=== PATIENT | male | born 1945 | race Caucasian/White ===

== ENCOUNTER → 2020-01-27 12:52 | Outpatient (BNVA) | payer MEDICARE, MEDICAID, SELFPAY | PROVIDERS: Family Provider Family Medicine; PCP Family Medicine; Visit Provider Family Medicine | DX: E78.2 Mixed hyperlipidemia (principal); E11.9 Type 2 diabetes mellitus without complications; M1A.9XX0 Chronic gout, unspecified, without tophus (tophi); H66.91 Otitis media, unspecified, right ear; I10 Essential (primary) hypertension; M54.5 Low back pain; H66.001 Acute suppurative otitis media without spontaneous rupture of ear drum, right ear | CPT/HCPCS: 80053; 80061; 83036; 84550; 85025 ==

== ENCOUNTER → 2020-08-22 18:17 | Outpatient (BNVA) | payer MEDICARE, MEDICAID, SELFPAY | PROVIDERS: Family Provider Family Medicine; PCP Family Medicine; Visit Provider Family Medicine | DX: I10 Essential (primary) hypertension (principal); E78.5 Hyperlipidemia, unspecified; E11.9 Type 2 diabetes mellitus without complications | CPT/HCPCS: 80053; 80061; 83036; 85025 ==

== ENCOUNTER → 2020-12-15 09:16 | Outpatient (BNVA) | payer OTHER, MEDICAID, SELFPAY | PROVIDERS: Family Provider Family Medicine; PCP Family Medicine; Visit Provider Family Medicine | DX: E11.51 Type 2 diabetes mellitus with diabetic peripheral angiopathy without gangrene (principal); R60.0 Localized edema; F10.27 Alcohol dependence with alcohol-induced persisting dementia; E78.2 Mixed hyperlipidemia; I10 Essential (primary) hypertension | CPT/HCPCS: 80053; 80061; 83036; 84443; 85025 ==

== ENCOUNTER → 2021-04-27 15:46 | Outpatient (BNVA) | payer OTHER, MEDICAID, SELFPAY | PROVIDERS: Family Provider Family Medicine; PCP Family Medicine; Visit Provider Internal Medicine Cardiovascular Disease | DX: F10.27 Alcohol dependence with alcohol-induced persisting dementia (principal); R60.0 Localized edema; I73.9 Peripheral vascular disease, unspecified; R06.02 Shortness of breath; I50.33 Acute on chronic diastolic (congestive) heart failure; I10 Essential (primary) hypertension | CPT/HCPCS: 80048; 83880 ==

== ENCOUNTER 2021-06-22 10:16 | Outpatient (CLI) | payer MEDICARE, MEDICAID, SELFPAY ==
--- NOTE | 2021-06-22 10:15 | USR_ITS ---
PROCEDURE INFORMATION: Exam: US Duplex Lower Extremity Arteries Exam date and time: 06/22/2021 10:15 AM Age: 76 years old Clinical indication: Leg, lower; Bilateral; Patient HX: Pain in legs; Additional info: I73.9 - peripheral vascular disease, unspecified, aeap TECHNIQUE: Imaging protocol: Real-time ultrasound scan of the arteries of the bilateral lower extremities with 2-D falcon scale, color Doppler flow and spectral waveform analysis. Images documented and saved. COMPARISON: CT Chest/Abdomen/Pelvis w IV* 12/11/2018 9:06 PM FINDINGS: Right external iliac artery: Right external iliac artery is patent with monophasic waveforms but strong systolic upstroke. Right common femoral artery: No occlusion or significant stenosis. Monophasic waveform. Right superficial femoral artery: No occlusion or significant stenosis. Monophasic waveform. Right popliteal artery: No occlusion or significant stenosis. Monophasic waveform. Right calf/foot arteries: Ankle brachial index on the right is 0.6 which implies moderate vascular insufficiency. Posterior tibial artery and dorsalis pedis artery are patent with diminished flow and monophasic waveform Left external iliac artery: Proximal and mid left external iliac arteries are occluded. The distal left internal iliac artery reconstitutes via collaterals in has continuous phasic flow. Left common femoral artery: No occlusion or significant stenosis. Continuous monophasic waveform with slow systolic upstroke. Left superficial femoral artery: No occlusion or significant stenosis. Continuous monophasic waveform with slow systolic upstroke. Left popliteal artery: No occlusion or significant stenosis. Monophasic waveform with poor systolic upstroke. Left calf/foot arteries: Ankle brachial index on the left is 0.4 which implies severe vascular insufficiency. No flow seen in the distal left posterior tibial artery. The left dorsalis pedis artery is patent to supply the foot US/[place] [id number] IMPRESSION: Abnormal examination with moderate vascular insufficiency on the right and severe vascular insufficiency on the left with occlusions demonstrated in the left proximal and mid external iliac artery.
== END 2021-06-22 10:17 | disposition home or self-care (01) ==
PROVIDERS: PCP Family Medicine; Visit Provider Internal Medicine Cardiovascular Disease
DX: I73.9 Peripheral vascular disease, unspecified (principal)
CPT/HCPCS: 93925

== ENCOUNTER 2021-10-18 13:16 | Outpatient (CLI) | payer MEDICARE, MEDICAID, SELFPAY ==
--- NOTE | 2021-10-18 13:30 | US_ITS ---
WS: [id number] ULTRASOUND THYROID TECHNIQUE: Ultrasound of the thyroid. CLINICAL INFORMATION: E07.9 - Disorder of thyroid, unspecified COMPARISON: None. FINDINGS: Technically limited examination due to patient mobility. Thyroid: Right and left thyroid lobes are normal in size and echotexture. No thyroid nodules are pres ent. Right thyroid lobe: 3.4 cm x 1.6 cm x 2.2 cm Left thyroid lobe: 3.3 cm x 1.9 cm x 1.8 cm. Isthmus: 10.0 mm. Cervical lymphadenopathy: None. US/US thyroid [id number] IMPRESSION: Grossly normal thyroid ultrasound considering limitations.
== END 2021-10-18 13:17 | disposition home or self-care (01) ==
LOC: RAD 13:19
PROVIDERS: PCP Family Medicine; Visit Provider Thoracic Surgery (Cardiothoracic Vascular Surgery)
DX: E07.9 Disorder of thyroid, unspecified (principal)
CPT/HCPCS: 76536

== ENCOUNTER → 2022-01-09 11:45 | Outpatient (BNVA) | payer MEDICARE, MEDICAID, SELFPAY | PROVIDERS: PCP Family Medicine; Referring Provider Internal Medicine Cardiovascular Disease | DX: Z01.812 Encounter for preprocedural laboratory examination (principal); M79.606 Pain in leg, unspecified; I73.9 Peripheral vascular disease, unspecified | CPT/HCPCS: 86850; 86900 ==

== ENCOUNTER 2022-01-15 15:11 | Inpatient (IN) | payer MEDICARE, MEDICAID, SELFPAY ==
[2022-01-15] VITALS (44 sets, daily range): BP systolic 53–155; BP diastolic 31–113; PULSE 68–95; RESP 14–27; TEMP 36.6–36.8; O2SAT 85–100; BMI 26.5
--- NOTE | 2022-01-15 15:53 | W.ED.GENADLT ---
HPI - General Adult General: Chief complaint: General Medical Stated complaint: INCREASED WEAKNESS, WHEEZING, LEG PAIN Time Seen by Provider: 01/15/22 15:16 Source: patient Mode of arrival: EMS Limitations: altered mental status History of Present Illness: 76-year-old male presents from shelter via EMS. They reported he was weak poorly responsive and hypotensive at the shelter with elevated blood sugar.On arrival here he is alert but unable to give any significant history. He is not oriented to time place. He denies chest pain abdominal pain or difficulty breathing. Onset (ago): unknown Radiation: non-radiation Severity: mild Relieving factors: none Exacerbating factors: none Associated symptoms: Reports weakness; Deny cough, decreased appetite, fevers/chills, seizures or short of breath Treatments prior to arrival: none Review of Systems General: Reports: ROS unobtainable due to mental status PFS ED PFSH: Medical History ASHD (arteriosclerotic heart disease) ASVD (arteriosclerotic vascular disease) Carotid artery disease Chronic gout CKD (chronic kidney disease) Dementia Diabetes History of [place] (myocardial infarction) History of positive PPD Hyperlipidemia Hypertension Pre-procedure lab exam PVD (peripheral vascular disease) Spinal stenosis Vitamin D deficiency Surgical History H/O bilateral cataract extraction (Unknown) H/O cataract extraction History of hernia repair (~1995) Family History Other CAD (coronary artery disease) Cancer Unknown family medical history Social History Alcohol intake: never Marital status: / Physical Exam Const: GENERAL APPEARANCE: cooperative and comfortable ORIENTATION/CONSCIOUSNESS: Yes awake HENMT: COMMON NORMALS: normocephalic, atraumatic and hearing grossly normal bilaterally HEAD & SCALP: normocephalic and atraumatic Neck/C-Spine: COMMON NORMALS: no JVD Resp: COMMON NORMALS: normal respiratory effort, No retractions, No use of accessory muscles and clear to auscultation bilaterally AUSCULTATION: clear to auscultation bilaterally Cardio: COMMON NORMALS: no JVD, regular rate, regular rhythm and No murmurs present (Cardio) RATE: regular rate RHYTHM: regular rhythm GI: COMMON NORMALS: Soft to palpation and No hepatosplenomegaly present AUSCULTATION: Yes normoactive bowel sounds PALPATION: Yes Soft to palpation, No Tenderness to palpation present (GI), No Guarding due to palpation present (GI) and Yes No hepatosplenomegaly present : COMMON NORMALS: Yes no CVA tenderness BLADDER/KIDNEY EXAM: Yes no CVA tenderness Back/Pelvis: COMMON NORMALS: no CVA tenderness Extremity: COMMON NORMALS: normal to inspection, capillary refill normal, no clubbing, cyanosis or edema, no calf tenderness and no pedal edema Skin: COMMON NORMALS: no rashes or lesions noted GENERAL SKIN EXAM: no rashes or lesions noted Course Vital Signs: Vital signs: Vital Signs Temperature 97.7 F 01/18/22 08:00 Pulse Rate 89 01/18/22 08:35 Respiratory Rate 17 01/18/22 08:35 Blood Pressure 93/64 01/18/22 08:00 Pulse Oximetry 97 01/18/22 08:35 [facility] - General Adult Medical Decision Making Patient acute rhabdomyolysis with altered mental status hypotension. Suspect some of his hypotension is due to volume depletion as well as iatrogenic from medications. Will admit to ICU given his hypotension discussed with hospitalist orders written Medical Records I reviewed the patient's medical records. Lab Data I reviewed the patient's lab results. : 01/17/22 04:48 01/17/22 04:48 Radiology Impressions Chest X-Ray 01/15/22 15:54 IMPRESSION: 1. No acute findings. 2. Low lung volumes seen. Discharge Plan Discharge Patient Disposition: Admitted As Inpatient Admit Provider: Misty Whiteside Clinical Impression: Hypotension, Rhabdomyolysis, Volume depletion Condition: Stable Coding Level of Care Code ED Planning Official for Dena Snell
--- NOTE | 2022-01-15 15:54 | ECG_ITS ---
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 Measurements Intervals [place] Rate: 78 P: 247 CT: 290 QRS: -2 QRSD: 118 T: 65 QT: 395 QTc: 452 Interpretive Statements Atrial flutter/fibrillation with a heart rate of 70 bpm INCOMPLETE RIGHT BUNDLE BRANCH BLOCK [90+ ms QRS DURATION, TERMINAL R IN V1/V2, 40+ ms S IN I/aVL/V4/V5/V6] POSSIBLE LATERAL MYOCARDIAL INFARCTION , OF INDETERMINATE AGE [30 ms Q WAVE IN I/aVL/V5/V6] Compared to ECG 12/11/2018 18:11:08 Ectopic atrial rhythm now present Incomplete right bundle-branch block now present Myocardial infarct finding now present Sinus rhythm no longer present Left-axis deviation no longer present Right bundle-branch block no longer present Electronically Signed On 01-15-2022 17:09:04 EXPERIMENTAL FLIGHT TEST MECHANIC by Sathish Rod M.D. [id number]
--- NOTE | 2022-01-15 15:54 | XRR_ITS ---
PROCEDURE INFORMATION: Exam: XR Chest Exam date and time: 01/15/2022 3:54 PM Age: 76 years old Clinical indication: Cough and dyspnea; Additional info: Dyspnea/cough, AMS TECHNIQUE: Imaging protocol: XR of the chest. Views: 1 view. COMPARISON: CT Chest/Abdomen/Pelvis w IV* 12/11/2018 9:06 PM FINDINGS: Lungs: Low lung volumes. The lungs are otherwise clear No consolidation. Pleural spaces: Unremarkable. No pleural effusion. No pneumothorax. Heart/Mediastinum: Unremarkable. No cardiomegaly. Bones/joints: Unremarkable. XR/XR chest 1V portable [id number] IMPRESSION: 1. No acute findings. 2. Low lung volumes seen.
[2022-01-15 16:09] LABS: Basophils % 0.2 %; Hematocrit 41.1 % (42.0-52.0); Hemoglobin 13.6 g/dL (11.7-16.6); Lymphocytes # 0.9 10^3/uL (0.8-4.8); Lymphocytes % 4.5 %; Mean Corpuscular HGB Conc 33.1 g/dL (30.0-36.0); Mean Corpuscular Hemoglobin 32.6 pg (28.0-34.0); Mean Corpuscular Volume 98.6 fl (80-94); Monocytes # 1.9 10^3/uL (0.2-0.9); Monocytes % 9.5 %; Neutrophils # 17.28 10^3/uL (1.8-7.7); Neutrophils % 85.1 %; Nucleated Red Blood Cells % 0 %; Platelet Count 219 10^3/cmm (130-400); Red Blood Count 4.17 10^6/uL (4.1-5.3); Red Cell Distribution Width 13.8 % (12.1-15.1); White Blood Count 20.3 10^3/uL (4.0-10.0)
[2022-01-15 16:20] LABS: Alanine Aminotransferase 24 U/L (0-41); Alkaline Phosphatase 98 IU/L (40-130); Aspartate Amino Transferase 68 U/L (0-40); Blood Urea Nitrogen 58 mg/dL (8-23); Calcium 10.2 mg/dL (8.5-10.5); Carbon Dioxide 22 mmol/L (22-29); Chloride 94 mmol/L (98-107); Globulin 3.6 g/dL (1.3-4.6); Glucose 309 mg/dL (65-115); Osmolality Calculated 296 mOsm/kg (285-295); Sodium 129 mmol/L (136-145); Total Bilirubin 0.5 mg/dL (0.15-1.2); Total Protein 7.6 g/dL (6.6-8.7)
--- NOTE | 2022-01-15 16:23 | PC.PHAR ---
pt is from [facility] [phone]-rudy med tech from [facility] states the pt had his am meds
[2022-01-15 16:35] LABS: Creatine Phosphokinase 5072 U/L (39-308)
--- NOTE | 2022-01-15 18:26 | P.HP_ITS ---
Providers/Chief Complaint Primary Care Provider: Gabriel Avery MD Chief Complaint: INCREASED WEAKNESS, WHEEZING, LEG PAIN History of Present Illness Richard Bose is a 76 year old male presented from [facility] for generalized weakness and confusion. In the ER he was diagnosed with hypotension related to polypharmacy. At the time of evaluation patient was able to tell me that he is in his home, however he notes that he was born in 1971, he was able to make eye contact and conversation without any shortness of breath. He does look fluid overloaded, some skin mottling noted on knees. Patient was given 2 L of LR in the ER for his hypertension. At the time my evaluation his map was 65mmhg I requested admission to ICU. Patient is awake and alert able to converse 8, no active chest pain or shortness of breath. He is endorsing dysuria, I will request Lopez catheter for collection of urine and adequate urin e output measurement. halfway records reviewed, he is DNR/DNI. Review of Systems Const: Reports: body aches Eyes: Denies: change in vision ENMT: Denies: throat pain Card: Denies: chest pain Resp: Reports: dyspnea GI: Denies: abdominal pain : Reports: dysuria and urinary frequency Musc: Reports: extremity swelling Skin/Breast: Denies: rash Neuro: Denies: headache(s) Psych: Denies: anxiety Endo: Denies: polyuria Bebeto/Lymph: Denies: easy bruising All/Imm: Denies: urticaria Medications/Allergies Home Medications Medication Instructions Recorded Confirmed Last Taken Type acetaminophen 325 mg capsule 650 mg PO Q6H PRN cap 11/25/19 01/15/22 Unknown Hi story allopurinol 300 mg tablet 300 mg PO DAILY@07 tab 11/25/19 01/15/22 01/15/22 History cilostazol 100 mg tablet 100 mg PO BID@,11/25/19 01/15/22 01/15/22 History liraglutide 0.6 mg/0.1 mL (18 mg/3 1.8 mg SUBCUT DAILY@07 11/25/19 01/15/22 01/15/22 History mL) subcutaneous pen injector (Victoza 3-Zain) lisinopril 10 mg tablet 10 mg PO DAILY@07 tab 11/25/19 01/15/22 01/15/22 History nitroglycerin 0.4 mg sublingual 0.4 mg SUBLINGUAL Q5M PRN 11/25/19 01/15/22 Unknown History tablet (Nitrostat) pen needle, diabetic 31 gauge x #100 each 12/15/20 01/15/22 Unknown Rx 04/02 (Easy Comfort Pen [place]) memantine 10 mg tablet (Namenda) 10 mg PO BID@07,19 tab 04/27/21 01/15/22 Unknown History rivaroxaban 15 mg tablet (Xarelto) 15 mg PO DAILY@08/31/21 01/15/22 01/14/22 History albuterol sulfate 2.5 mg INHALATION Q8H PRN 01/15/22 01/15/22 Unknown History bisacodyl 10 mg rectal suppository 10 mg [place] DAILY PRN 01/15/22 01/15/22 Unknown History dapagliflozin 10 mg tablet 10 mg PO DAILY@01/15/22 01/15/22 01/15/22 History (Farxiga) folic acid 400 mcg tablet 400 mcg PO DAILY@01/15/22 01/15/22 01/15/22 History furosemide 40 mg tablet (Lasix) 40 mg PO BID 01/15/22 01/15/22 01/15/22 History insulin glargine 100 unit/mL 30 unit SUBCUT BEDTIME@01/15/22 01/15/22 01/14/22 History subcutaneous solution isosorbide mononitrate 30 mg 30 mg PO DAILY@01/15/22 01/15/22 01/15/22 History tablet,extended release 24 hr loperamide 2 mg tablet See Rx Instructions .ROUTE .COMPLEX 01/15/22 01/15/22 Unknown History loperamide 2 mg tablet See Rx Instructions .ROUTE .COMPLEX 01/15/22 01/15/22 Unknown History lorazepam 0.5 mg tablet 0.5 mg PO BID PRN 01/15/22 01/15/22 01/12/22 History magnesium hydroxide 400 mg/5 mL 5 ml PO DAILY PRN 01/15/22 01/15/22 Unknown History oral suspension (Milk of Magnesia) metoprolol succinate 25 mg 25 mg PO DAILY@01/15/22 01/15/22 01/15/22 History tablet,extended release 24 hr potassium chloride 10 mEq 10 meq PO BID@,01/15/22 01/15/22 01/15/22 History capsule,extended release risperidone 0.5 mg tablet 0.5 mg PO BID@01/15/22 01/15/22 01/15/22 History (Risperdal) rosuvastatin 20 mg tablet 20 mg PO BEDTIME@01/15/22 01/15/22 01/14/22 History spironolactone 25 mg tablet 25 mg PO DAILY@01/15/22 01/15/22 01/15/22 History Allergies Allergy/AdvReac Type Severity Reaction Status Date / Time Penicillins Allergy Unknown Verified 01/15/22 16:03 metformin AdvReac Unknown Verified 01/15/22 16:03 PFSH Acute PFSH: Medical History (Updated 01/15/22 @ 19:27 by Misty Whiteside MD) ASHD (arteriosclerotic heart disease) ASVD (arteriosclerotic vascular disease) Carotid artery disease Chronic gout CKD (chronic kidney disease) Dementia Diabetes History of [place] (myocardial infarction) History of positive PPD Hyperlipidemia Hypertension Pre-procedure lab exam PVD (peripheral vascular disease) Spinal stenosis Vitamin D deficiency Surgical History (Updated 01/15/22 @ 19:27 by Misty Whiteside MD) H/O bilateral cataract extraction (Unknown) H/O cataract extraction History of hernia repair (~1995) Family History Other CAD (coronary artery disease) Cancer Unknown family medical history Social History Alcohol intake: never Marital status: / Vitals/I&O/Wt Last Vital Signs Temp 97.9 F 01/15/22 15:13 Pulse 76 01/15/22 15:13 Resp 19 H 01/15/22 15:13 BP 85/43 01/15/22 15:13 Pulse Ox 95 01/15/22 15:13 Weight last 48 hrs Weight 83.915 kg Physical Exam Narrative: Patient was in semifowler position Saturating well on room air Patient does look fluid overloaded with bilateral lower extremity 3+ pitting edema, normal genital exam Edema up to his thighs I did not appreciate JVD Satting well on room air He does have cardiac wheezing Distended abdomen Nontender EOMI, PERRLA Able to follow commands Oriented to himself Data : 01/15/22 Unknown 01/15/22 Unknown A&P Assessment and plan (1) Carotid artery disease: Status: Acute Qualifiers: Carotid artery disease type: unspecified Laterality: unspecified laterality Qualified Code(s): I77.9 - Disorder of arteries and arterioles, unspecified (2) Leg pain: Status: Acute Qualifiers: Laterality: left Qualified Code(s): M79.605 - Pain in left leg (3) SOB (shortness of breath): Status: Acute (4) Edema: Status: Acute Qualifiers: Edema type: localized Qualified Code(s): R60.0 - Localized edema (5) Dementia associated with alcoholism with behavioral disturbance: Status: Acute (6) Chronic gout: Status: Acute (7) PVD (peripheral vascular disease): Status: Acute (8) Diabetes: Status: Acute Qualifiers: Diabetes mellitus type: type 2 Diabetes mellitus terminal worker insulin use: without terminal worker use Diabetes mellitus complication status: without complication Qualified Code(s): E11.9 - Type 2 diabetes mellitus without complications (9) Hypertension: Status: Acute Qualifiers: Hypertension type: essential hypertension Qualified Code(s): I10 - Essential (primary) hypertension (10) Hyperlipidemia: Status: Acute Qualifiers: Hyperlipidemia type: mixed hyperlipidemia Qualified Code(s): E78.2 - Mixed hyperlipidemia (11) Cardiogenic shock: Status: Acute Plan Hypotension related to polypharmacy Patient is also on multiple antihypertensive regimen Clinically looks fluid overloaded Cardiac wheezing positive I am not able to give him any diuretics because of his low blood pressure Will admit to ICU, start levo once pressure is better we will give diuretics albumin is 4.0 Serial troponin and EKG Rule out cardiogenic shock Check BNP Check echo in the morning, check TSH Acute kidney injury related to CHF exacerbation and hypotension Patient is DNR/DNI Dementia with acute delirium Check UA Chest x-ray unremarkable Stop IV fluids CPK 5000 however not consistent with rhabdo Insulin with sliding scale Consistent carb cardiac diet Attestations Medical Necessity Statement*: Anticipating more than 2 midnights Time Spent in Patient Care: 35min Coding Level of Care Code Acute Owner/Photographer for [facility] Fwd Diagnoses Carotid artery disease I77.9 Carotid artery disease type: unspecified Laterality: unspecified laterality Leg pain M79.605 Laterality: left SOB (shortness of breath) R06.02 Edema R60.0 Edema type: localized Dementia associated with alcoholism with behavioral disturbance F10.27 Chronic gout [id number] PVD (peripheral vascular disease) I73.9 Diabetes E11.9 Diabetes mellitus type: type 2 Diabetes mellitus group home insulin use: without group home use Diabetes mellitus complication status: without complication Hypertension I10 Hypertension type: essential hypertension Hyperlipidemia E78.2 Hyperlipidemia type: mixed hyperlipidemia Cardiogenic shock R57.0
--- NOTE | 2022-01-15 19:33 | ECG_ITS ---
[facility] Test Date: 2022-01-15 Pat Name: Richard Bose Department: Room: [facility] Gender: Male Supervisor Billposting: : 1945 Requested By: Misty Whiteside Order Number: [id number] Con MD: Jacinta Quiroga M.D. Measurements Intervals [place] Rate: 75 P: 223 MI: 203 QRS: -24 QRSD: 118 T: 84 QT: 375 QTc: 420 Interpretive Statements Atrial flutter INCOMPLETE RIGHT BUNDLE BRANCH BLOCK Compared to ECG 01/15/2022 15:59:53 Myocardial infarct finding no longer present Electronically Signed On 01-17-2022 5:44:04 LOCATOR SPECIALIST by Jacinta Quiroga M.D. [id number]
[2022-01-15] MEDS: lactated ringers 1,000 ML 999 ML IV (19:44)
[2022-01-15] MEDS: norepinephrine 8 MG in dextrose 5 % 500 ML 7.62 MG IV (20:33)
[2022-01-15] MEDS: insulin glargine 100 units/1 mL 25 UNIT SUBCUT (21:07)
[2022-01-15 21:09] LABS: Glucose Point of Care 219 mg/dL (70-110)
[2022-01-15 21:09] LABS: Troponin(5th) Baseline 60 ng/L (0-15)
[2022-01-15] MEDS: hydrocortisone 100 mg/2 mL SDV IVP (21:10)
[2022-01-15] MEDS: risperiDONE 0.25 mg Tablet 0.5 MG PO (21:18)
[2022-01-15] MEDS: memantine 5 mg tablet 10 MG PO (21:18)
[2022-01-15] MEDS: rivaroxaban 10 mg Tablet 15 MG PO (21:18)
[2022-01-15 21:19] LABS: NT Pro B Type Natriuretic Pept 1080 pg/mL (0-125); Procalcitonin 0.25 ng/mL (0-0.5); Thyroid Stimulating Hormone 2.41 uIU/mL (0.27-4.20)
--- NOTE | 2022-01-15 21:48 | PC.NURSE ---
Patient arrived to ICU from ER. Patient confused and pulls IV lines out that are delivering vasopressors to maintain a stable blood pressure. Notified Dr. Chin and received orders for non violent restraints. Patient swatting at staff and being non complaint with cares before applying restraints after multiple attempts to redirect.
--- NOTE | 2022-01-15 21:53 | PC.NURSE ---
Called Sister Richard and updated family on patients condition.
[2022-01-15 22:09] LABS: Add Urine Culture? Yes; Add Urine Microscopic? YES; Bacteria Urine 4+ /hpf; Bilirubin Urine Neg (Negative); Blood Urine 3+ (Negative); Glucose Urine UA 4+ (Normal); Hyaline Casts Urine 0-4 /lpf; Ketones Urine Negative (Negative); Leukocyte Esterase Urine Negative (Negative); Nitrate Urine Negative (Negative); Protein Urine Neg (Negative); RBC Urine 0-4 /hpf (0-2); Squamous Epithelial Cell Urine 0-4 /hpf (0-5); Urine Appearance Clear (CLEAR); Urine Color Yellow (Yellow); Urobilinogen Urine Norm (Negative); pH Urine 5 (5-7)
[2022-01-15 22:56] LABS: Troponin 5 2HR 59.22 ng/L (0-15)
[2022-01-15 23:00] LABS: Troponin 5 2HR Delta -0.78 ABS# (0-10)
[2022-01-16] VITALS (222 sets, daily range): BP systolic 83–143; BP diastolic 42–95; PULSE 70–102; RESP 12–76; TEMP 36.9–37.4; O2SAT 90–100
--- NOTE | 2022-01-16 | USCV_ITS ---
Transthoracic Echo Richard Bose Age: 76 Gender: M : 1945 Exam Date: 01/16/2022 01:47 Ordering Phys: Misty Whiteside MD Technologist: ROBERT Exam Location: [facility] Indication: Congestive heart failure BP: 91 / 64 HR: 82 Rhythm: Atrial fibrillation Technical Quality: Adequate MEASUREMENTS (Male / Female) Normal Values 2D ECHO LV Diastolic Diameter PLAX 2.2 cm 4.2 - 5.9 / 3.9 - 5.3 cm LV Systolic Diameter PLAX 0.7 cm IVS Diastolic Thickness 1.6 cm 0.6 - 1.0 / 0.6 - 0.9 cm IVS Systolic Thickness 2.0 cm LVPW Diastolic Thickness 1.7 cm 0.6 - 1.0 / 0.6 - 0.9 cm LVPW Systolic Thickness 1.8 cm LVOT Diameter 2.2 cm LV Ejection Fraction 2D Teich 96.3 % LV Ejection Fraction MOD 2C 75.0 % LV Ejection Fraction 2C AL 74.2 % LA Diameter 3.4 cm LA Width 2.2 cm LA Height 6.8 cm RA Width 3.0 cm RA Height 6.3 cm Aorta at Sinotubular Diameter 2.3 cm M-MODE Aortic Annulus Diameter 2.5 cm LA Ao Ratio MM 1.3 DOPPLER AV Peak Velocity 209.0 cm/s LVOT Peak Velocity 69.0 cm/s AV Area Cont Eq vti 1.3 cm squared AV Area Cont Eq pk 1.2 cm squared TR Peak Velocity 207.8 cm/s TR Peak Gradient 17.3 mmHg TR Mean Velocity 185.5 cm/s TR Mean Gradient 14.2 mmHg TR Velocity Time Integral 58.7 cm Right Atrial Pressure 3.0 mmHg Pulmonary Artery Systolic Pressu 20.3 mmHg PV Peak Velocity 100.0 cm/s RV Acceleration Time 0.1 s RV Ejection Time 0.3 s RV AcT/ET 0.5 FINDINGS Left Ventricle Normal left ventricular cavity size and systolic function. Left ventricular ejection fraction is estimated at 65 %. Although no diagnostic regional wall motion what he could be undefined, this possibility cannot be completely excluded based on the study. Rhythm precludes evaluation of diastolic function. Right Ventricle Normal right ventricular size and systolic function. Right ventricular systolic pressure 20.3 mmHg. Right Atrium Normal right atrial size. Right atrial pressure estimated at 3 mm Hg. Left Atrium Mildly increased left atrial size. Mitral Valve Moderate mitral annular calcification (more pronounced in posterior annulus). No mitral valve stenosis. No significant mitral valve regurgitation. Aortic Valve Moderately thickened and calcified aortic valve. Mild aortic valve stenosis, peak velocity 2.2 m/s, peak gradient 19 mmHg, mean gradient 11 mmHg, STEFFI 1.3 cm squared. Tricuspid Valve Tricuspid valve not well visualized. Pulmonic Valve Pulmonic valve not well visualized. Pericardium No pericardial effusion. Prominent epicardial fat. Aorta Normal size aortic root and proximal ascending aorta. Normal- sized inferior vena cava with normal respiratory variation. CONCLUSIONS 1. This is a technically difficult study. 2. Normal left ventricular cavity size and systolic function. Left ventricular ejection fraction is estimated at 65 %. Although no diagnostic regional wall motion what he could be undefined, this possibility cannot be completely excluded based on the study. 3. Normal right ventricular size and systolic function. 4. Moderately thickened and calcified aortic valve. Mild aortic valve stenosis, peak velocity 2.2 m/s, peak gradient 19 mmHg, mean gradient 11 mmHg, STEFFI 1.3 cm squared. 5. When compared to prior echocardiogram dated 07/26/2014, mitral annular calcification has worsened and there is possibly mild aortic stenosis now. Jacinta Quiroga MD (Electronically Signed) Final Date: 16 January 2022 15:00 S
[2022-01-16 02:54] LABS: Basophils % 0.2 %; Hematocrit 39.3 % (42.0-52.0); Hemoglobin 12.8 g/dL (11.7-16.6); Lymphocytes # 1.2 10^3/uL (0.8-4.8); Lymphocytes % 6.4 %; Mean Corpuscular HGB Conc 32.6 g/dL (30.0-36.0); Mean Corpuscular Hemoglobin 32.3 pg (28.0-34.0); Mean Corpuscular Volume 99.2 fl (80-94); Mean Platelet Volume 9.7 fL (7.4-10.4); Monocytes # 1.6 10^3/uL (0.2-0.9); Monocytes % 8.7 %; Neutrophils # 15.75 10^3/uL (1.8-7.7); Neutrophils % 84.1 %; Nucleated Red Blood Cells % 0 %; Platelet Count 194 10^3/cmm (130-400); Red Blood Count 3.96 10^6/uL (4.1-5.3); Red Cell Distribution Width 13.8 % (12.1-15.1); White Blood Count 18.7 10^3/uL (4.0-10.0)
[2022-01-16 03:07] LABS: Troponin 5 6HR 49.37 ng/L (0-15)
[2022-01-16 03:08] LABS: Magnesium 2.6 mg/dL (1.7-2.3)
[2022-01-16 03:09] LABS: Troponin 5 6HR Delta -10.63 ng/L (0-12)
[2022-01-16 03:32] LABS: Anion Gap 18.1 (5-19); Blood Urea Nitrogen 60 mg/dL (8-23); Calcium 9.3 mg/dL (8.5-10.5); Carbon Dioxide 19 mmol/L (22-29); Chloride 100 mmol/L (98-107); Glucose 246 mg/dL (65-115); Osmolality Calculated 299 mOsm/kg (285-295); Potassium 5.1 mmol/L (3.5-5.1); Sodium 132 mmol/L (136-145)
[2022-01-16] MEDS: memantine 5 mg tablet 10 MG PO ×2 (06:02→19:10)
[2022-01-16] MEDS: risperiDONE 0.25 mg Tablet 0.5 MG PO ×2 (06:02→19:08)
[2022-01-16] MEDS: allopurinol 300 mg Tablet PO (06:02)
--- NOTE | 2022-01-16 06:10 | PC.NURSE ---
Patients blood pressure stable and no longer requiring pressors. Patient is resting and restraints removed at 0601.
[2022-01-16 07:52] LABS: Glucose Point of Care 156 mg/dL (70-110)
[2022-01-16] MEDS: insulin lispro 100 unit/1 mL SUBCUT ×3 (07:53→17:12)
[2022-01-16] MEDS: cefTRIAXone 1,000 MG in sodium chloride 0.9% (plus) 50 ML 100 MG IV (08:39)
[2022-01-16 09:04] LABS: Creatine Phosphokinase 6871 U/L (39-308)
--- NOTE | 2022-01-16 10:33 | PC.NURSE ---
Patents blood pressure fluctuating. Need to restart levophed not indicated at this time. Will continue to monitor. Dr. Whiteside notified.
--- NOTE | 2022-01-16 11:52 | P.PN_ITS ---
Subjective Subjective: Patient is off levo This morning he was still oriented to himself He pulled on his Lopez catheter which resulted in traumatic bleeding, asked nurse to remove Lopez catheter, adequate urine output overnight Blood pressure is still soft, will monitor in the ICU for next few hours Vitals/I&O/Wt Last Vital Signs Temp 98.8 F 01/16/22 07:35 Pulse 75 01/16/22 10:00 Resp 17 01/16/22 10:00 BP 88/65 01/16/22 10:00 Pulse Ox 96 01/16/22 10:00 01/15/22 01/16/22 01/16/22 22:59 06:59 14:59 Intake Total 1100 / 1100 65.659 / 1165.659 290 / 290 Output Total 1850 / 1850 Balance 1100 / 1100 -1784.341 / -684.341 290 / 290 Weight last 48 hrs Weight 104.411 kg Weight 83.915 kg Physical Exam Narrative: Patient is oriented to himself Saturating well on room air Variable S1-S2 Abdomen is soft, distended, with obesity Lopez catheter draining yellow clear urine Traumatic bleeding noticed around the urethral meatus Patient is able to move all of his extremities Nonfocal neuro exam Verbally redirectable No audible stridor or wheezing on lung auscultation however he does have upper airway high resonance sound, I do not appreciate any labored breathing signs Urinary Catheter Management: Lopez: Cath Placed During This Visit: yes Reason for Continuing Indwelling Catheter: Accurate Measurement of Urinary O utput in Critically Ill Patients Urinary Catheter Date of Insertion: 01/15/22 Urinary Catheter Time of Insertion: 19:49 Data : 01/16/22 02:39 01/16/22 02:39 A&P Assessment and plan (1) Cardiogenic shock: Status: Acute (2) Carotid artery disease: Status: Acute Qualifiers: Carotid artery disease type: unspecified Laterality: unspecified laterality Qualified Code(s): I77.9 - Disorder of arteries and arterioles, unspecified (3) SOB (shortness of breath): Status: Acute (4) Edema: Status: Acute Qualifiers: Edema type: localized Qualified Code(s): R60.0 - Localized edema (5) Hyperglycemia: Status: Acute (6) Hypotension: Status: Acute (7) Diabetes: Status: Acute Qualifiers: Diabetes mellitus type: type 2 Diabetes mellitus terminal makeup operator insulin use: without terminal makeup operator use Diabetes mellitus complication status: without complication Qualified Code(s): E11.9 - Type 2 diabetes mellitus without complications Plan Polypharmacy related hypotension I am still waiting for the echo, with no active chest pain, troponin trending down On lung auscultation no cardiac wheezing however he has upper airway resonance Lower extremity edema noted Currently off levo we will monitor in ICU for next few hours to see if we will require Levophed again because systolic blood pressure is soft, There is no change in his mentation He is oriented to himself He was pulling on the Lopez catheter, which resulted in traumatic bleeding around urethral meatus Asked nurse to remove the Lopez catheter today TSH normal Check random cortisol level Albumin is 4 Creatinine kinase is worsening, I am reluctant to add fluids for now LINDA related to hypotension Monitor urine output Bladder scanner every 6 hours on as needed basis if he is not voiding, Lopez catheter has been removed Today patient is in negative balance DNR/DNI Attestations Medical Necessity Statement*: Continue ICU management Time Spent in Patient Care: 30mins Coding Level of Care Code Acute 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
[2022-01-16 12:02] LABS: Glucose Point of Care 144 mg/dL (70-110)
[2022-01-16] MEDS: hydrocortisone 100 mg/2 mL SDV 50 MG IVP (12:32)
--- NOTE | 2022-01-16 14:13 | PC.NURSE ---
Dr. Whiteside ordered catheter removal after patient pulled on catheter. Lopez catheter removed after irrigation. Small blood clots visible after irrigation and after removal of catheter a small amount of blood could be seen on the catheter. Patient tolerated removal well and denied any pain before and after removal.
[2022-01-16] MEDS: midodrine 5 mg TABLET 10 MG PO ×2 (15:22→20:26)
[2022-01-16 16:51] LABS: Glucose Point of Care 180 mg/dL (70-110)
[2022-01-16] MEDS: insulin glargine 100 units/1 mL 25 UNIT SUBCUT (19:08)
[2022-01-16] MEDS: rivaroxaban 10 mg Tablet 15 MG PO (19:09)
[2022-01-16 20:52] LABS: Glucose Point of Care 171 mg/dL (70-110)
--- NOTE | 2022-01-16 22:41 | PC.NURSE ---
Pt had to be transferred to new bed. He was also incontinent of urine, so victoria care and new absorbent pads had to be placed. Pt began screaming and raising his hands in an aggressive manner, threatening to strike nursing staff. Myself and another nurse were able to complete patient care without being struck. Emotional support provided to patient. Television turned on and fresh water offered. Pt became calm and held this nurse's hand. Bed alarm enabled.
[2022-01-17] VITALS (7 sets, daily range): BP systolic 109–137; BP diastolic 64–90; PULSE 60–93; RESP 18–20; TEMP 36.5–36.9; O2SAT 92–96
--- NOTE | 2022-01-17 02:02 | PC.NURSE ---
Pt resting quietly in bed. He is cooperative, but does not wish to turn at this time. He did allow me to clean his dentures.
[2022-01-17 05:07] LABS: Basophils % 0.2 %; Eosinophils # 0.1 10^3/uL (0.0-0.8); Eosinophils % 0.7 %; Hematocrit 40.3 % (42.0-52.0); Hemoglobin 13.1 g/dL (11.7-16.6); Lymphocytes # 2.1 10^3/uL (0.8-4.8); Lymphocytes % 13.5 %; Mean Corpuscular HGB Conc 32.5 g/dL (30.0-36.0); Mean Corpuscular Hemoglobin 32.3 pg (28.0-34.0); Mean Corpuscular Volume 99.3 fl (80-94); Mean Platelet Volume 9.5 fL (7.4-10.4); Monocytes # 1.5 10^3/uL (0.2-0.9); Monocytes % 9.7 %; Neutrophils # 11.48 10^3/uL (1.8-7.7); Neutrophils % 75.2 %; Nucleated Red Blood Cells % 0 %; Platelet Count 210 10^3/cmm (130-400); Red Blood Count 4.06 10^6/uL (4.1-5.3); Red Cell Distribution Width 13.9 % (12.1-15.1); White Blood Count 15.3 10^3/uL (4.0-10.0)
[2022-01-17] MEDS: acetaminophen 325 mg Tablet 650 MG PO (05:36)
[2022-01-17 05:39] LABS: Anion Gap 14.8 (5-19); Blood Urea Nitrogen 43 mg/dL (8-23); Calcium 8.8 mg/dL (8.5-10.5); Carbon Dioxide 24 mmol/L (22-29); Chloride 97 mmol/L (98-107); Glucose 168 mg/dL (65-115); Osmolality Calculated 287 mOsm/kg (285-295); Potassium 4.8 mmol/L (3.5-5.1); Sodium 131 mmol/L (136-145)
[2022-01-17 05:58] LABS: Creatine Phosphokinase 6304 U/L (39-308)
[2022-01-17 06:06] LABS: Glucose Point of Care 153 mg/dL (70-110)
[2022-01-17] MEDS: allopurinol 300 mg Tablet PO (06:22)
[2022-01-17] MEDS: memantine 5 mg tablet 10 MG PO ×2 (06:22→17:39)
[2022-01-17] MEDS: risperiDONE 0.25 mg Tablet 0.5 MG PO ×2 (06:22→17:39)
[2022-01-17] MEDS: midodrine 5 mg TABLET 10 MG PO ×3 (08:44→20:49)
[2022-01-17] MEDS: insulin lispro 100 unit/1 mL SUBCUT ×2 (08:44→11:37)
--- NOTE | 2022-01-17 09:42 | P.PN_ITS ---
Subjective Subjective: This morning patient was a bit drowsy however pressure has been stable He is getting midodrine I would like to monitor him 1 more day before I [facility] Patient did open his eyes and stated that yes he is feeling hungry and would like to eat his breakfast I did not see any focal deficits Vitals/I&O/Wt Last Vital Signs Temp 97.9 F 01/17/22 07:53 Pulse 70 01/17/22 08:11 Resp 19 H 01/17/22 08:11 BP 123/87 01/17/22 07:53 Pulse Ox 96 01/17/22 08:11 01/16/22 01/17/22 01/17/22 22:59 06:59 14:59 Intake Total 460 / 1110 1340 / 2450 240 / 240 Output Total 240 / 1040 600 / 1640 Balance 220 / 70 740 / 810 240 / 240 Weight last 48 hrs Weight 105.959 kg Weight 104.411 kg Weight 83.915 kg Physical Exam Narrative: Patient is drowsy however arousable Doing well on room air Nonfocal neuro exam Opening eyes Stated that he wants to eat his breakfast Distended abdomen nontender Lower extremity 2+ pitting edema Nonfocal neuro exam No audible stridor or wheezing Urinary Catheter Management: Lopez: Cath Placed During This Visit: yes Reason for Continuing Indwelling Catheter: Accurate Measurement of Urinary Output in Critically Ill Patients Urinary Catheter Date of Insertion: 01/15/22 Urinary Catheter Time of Insertion: 19:49 Data : 01/17/22 04:48 01/17/22 04:48 A&P Assessment and plan (1) Hypotension: Status: Acute (2) Hyperglycemia: Status: Acute (3) Cardiogenic shock: Status: Acute (4) PVD (peripheral vascular disease): Status: Acute (5) Chronic gout: Status: Acute (6) Hypertension: Status: Acute Qualifiers: Hypertension type: essential hypertension Qualified Code(s): I10 - Essential (primary) hypertension (7) Diabetes: Status: Acute Qualifiers: Diabetes mellitus type: type 2 Diabetes mellitus custodial insulin use: without custodial use Diabetes mellitus complication status: without complication Qualified Code(s): E11.9 - Type 2 diabetes mellitus without c omplications Plan I am going to keep patient 1 more day he was a bit groggy and drowsy this morning Saturating well on room air Monitor off antihypertensive Currently on midodrine Nonfocal neuro exam We will start low-dose diuretics from today 2+ pitting edema of legs LINDA: Improved CPK improving Lopez catheter has been removed No active signs of cardiogenic shock Attestations Medical Necessity Statement*: Continue hospitalization continue hospitalization Time Spent in Patient Care: 15min Coding Level of Care Code Acute Transmitter Engineer In Charge for Chg Fwd Diagnoses Hypotension I95.9 Hyperglycemia R73.9 Cardiogenic shock R57.0 PVD (peripheral vascular disease) I73.9 Chronic gout [id number] Hypertension I10 Hypertension type: essential hypertension Diabetes E11.9 Diabetes mellitus type: type 2 Diabetes mellitus extermination inspector insulin use: without extermination inspector use Diabetes mellitus complication status: without complication
[2022-01-17 11:25] LABS: Glucose Point of Care 183 mg/dL (70-110)
[2022-01-17] MEDS: rivaroxaban 10 mg Tablet 15 MG PO (17:39)
[2022-01-17] MEDS: insulin glargine 100 units/1 mL 25 UNIT SUBCUT (17:40)
[2022-01-18] VITALS (7 sets, daily range): BP systolic 93–156; BP diastolic 64–84; PULSE 62–89; RESP 17–20; TEMP 36.4–37.1; O2SAT 94–98
[2022-01-18] MEDS: risperiDONE 0.25 mg Tablet 0.5 MG PO (06:03)
[2022-01-18] MEDS: allopurinol 300 mg Tablet PO (06:03)
[2022-01-18] MEDS: memantine 5 mg tablet 10 MG PO (06:04)
[2022-01-18 07:46] LABS: Glucose Point of Care 138 mg/dL (70-110)
[2022-01-18 07:46] LABS: Glucose Point of Care 130 mg/dL (70-110)
[2022-01-18 07:46] LABS: Glucose Point of Care 186 mg/dL (70-110)
--- NOTE | 2022-01-18 09:34 | PM.DCS ---
Discharge Providers Date of Admission: 01/15/22 20:19 Date of Discharge: January 18, 2022 Attending Provider at Admission: Misty Whiteside MD Attending Provider at Discharge: Misty Whiteside MD Primary Care Provider: Gabriel Avery MD Diagnoses at Discharge Discharge Diagnosis (1) Hypotension: Status: Acute (2) Hyperglycemia: Status: Acute (3) Cardiogenic shock: Status: Acute (4) PVD (peripheral vascular disease): Status: Acute (5) Chronic gout: Status: Acute (6) Hypertension: Status: Acute Qualifiers: Hypertension type: essential hypertension Qualified Code(s): I10 - Essential (primary) hypertension (7) Diabetes: Status: Acute Qualifiers: Diabetes mellitus complication status: without complication Diabetes mellitus intermediate insulin use: without intermediate use Diabetes mellitus type: type 2 Qualified Code(s): E11.9 - Type 2 diabetes mellitus without complications Reason for Visit Reason for Visit: INCREASED WEAKNESS, WHEEZING, LEG PAIN Hospital Course Hospital Course This is my admitting note Richard Bose is a 76 year old male presented from [facility] for generalized weakness and confusion.? In the ER he was diagnosed with hypotension related to polypharmacy.? At the time of evaluation patient was able to tell me that he is in his home, however he notes that he was born in 1971, he was able to make eye contact and conversation without any shortness of breath.? He does look fluid overloaded, some skin mottling noted on knees.? Patient was given 2 L of LR in the ER for his hypertension.? At the time my evaluation his map was 65mmhg I requested admission to ICU.? Patient is awake and alert able to converse 8, no active chest pain or shortness of breath.? He is endorsing dysuria, I will request Lopez catheter for collection of urine and adequate urine output measurement.? senior living records reviewed, he is DNR/DNI. *I did call? [facility], nurse told me that sister was notified this morning she is at a of her brother, this morning Richard had blood sugar around 530mg and he was drowsy and lethargic, blood pressure was extremely soft, he did get all of his antihypertensive this morning, he did not complain of any chest pain or shortness of breath. Hospital course Patient was admitted to ICU for management of hypertension. This was related to polypharmacy. He required Levophed only for a few hours and his blood pressure improved. He received fluids only in the ER. I did not keep him on fluids because of his history of heart failure. Clinically his legs were edematous. I did give him stress dose steroids however he had normal TSH level and cortisol level. EKG without ischemic or infarct changes. His symptoms and clinical presentation was not consistent with cardiogenic shock. At baseline he is only oriented to himself, does seem to have visual hallucination. Severe dementia. Mild muscle injury, CPK trending down. LINDA related to hypotension improved. Adequate urine output during hospitalization. Lopez catheter was removed which was inserted for accurate output measurement. Significant changes made in his antihypertensive regimen at the time of discharge. Farxiga discontinued for risk of hypoglycemia. Continue insulin. Physical Exam Narrative: P patient was eating breakfast Doing well on room air Nonfocal neuro exam Experiencing visual hallucination Distended abdomen nontender Lower extremity 2+ pitting edema Nonfocal neuro exam No audible stridor or wheezing Urinary Catheter Management: Lopez: Cath Placed During This Visit: yes Reason for Continuing Indwelling Catheter: Accurate Measurement of Urinary Output in Critically Ill Patients Urinary Catheter Date of Insertion: 01/15/22 Urinary Catheter Time of Insertion: 19:49 Discharge Data Studies Completed and Pending Completed Studies During Hospitalization Category Date Time Status XR chest 1V portable [id number] Stat Exams 01/15/22 15:54 Completed CV. echo complete* [id number] Routine Ultrasound 01/16/22 Completed Pending at discharge Category Date Time Status COVID [SARS Covid-2 Antigen] Routine Lab 01/18/22 08:14 Uncollected Radiology Impressions Chest X-Ray 01/15/22 15:54 IMPRESSION: 1. No acute findings. 2. Low lung volumes seen. Laboratory Results WBC 15.3 10^3/uL (4.0-10.0) H 01/17/22 04:48 RBC 4.06 10^6/uL (4.1-5.3) L 01/17/22 04:48 Hgb 13.1 g/dL (11.7-16.6) 01/17/22 04:48 Hct 40.3 % (42.0-52.0) L 01/17/22 04:48 MCV 99.3 fl (80-94) H 01/17/22 04:48 MCH 32.3 pg (28.0-34.0) 01/17/22 04:48 MCHC 32.5 g/dL (30.0-36.0) 01/17/22 04:48 RDW 13.9 % (12.1-15.1) 01/17/22 04:48 Plt Count 210 10^3/cmm (130-400) 01/17/22 04:48 MPV 9.5 fL (7.4-10.4) 01/17/22 04:48 Neut % (Auto) 75.2 % 01/17/22 04:48 Lymph % (Auto) 13.5 % 01/17/22 04:48 [place] % (Auto) 9.7 % 01/17/22 04:48 Eos % (Auto) 0.7 % 01/17/22 04:48 Baso % (Auto) 0.2 % 01/17/22 04:48 Neut # (Auto) 11.48 10^3/uL (1.8-7.7) H 01/17/22 04:48 Lymph # (Auto) 2.1 10^3/uL (0.8-4.8) 01/17/22 04:48 [place] # (Auto) 1.5 10^3/uL (0.2-0.9) H 01/17/22 04:48 Eos # (Auto) 0.1 10^3/uL (0.0-0.8) 01/17/22 04:48 Baso # (Auto) 0.0 10^3/uL (0.0-0.1) 01/17/22 04:48 Nucleated RBC % (auto) 0 % 01/17/22 04:48 Nucleated RBCs # 0.0 /100WBC 01/17/22 04:48 Sodium 131 mmol/L (136-145) L 01/17/22 04:48 Potassium 4.8 mmol/L (3.5-5.1) 01/17/22 04:48 Chloride 97 mmol/L (98-107) L 01/17/22 04:48 Carbon Dioxide 24 mmol/L (22-29) 01/17/22 04:48 Anion Gap 14.8 (5-19) 01/17/22 04:48 BUN 43 mg/dL (8-23) H 01/17/22 04:48 Creatinine 1.2 mg/dL (0.7-1.2) 01/17/22 04:48 GFR Calculation Not Reportable 01/17/22 04:48 Glucose 168 mg/dL (65-115) H 01/17/22 04:48 POC Glucose 138 mg/dL (70-110) H 01/18/22 06:05 Calculated Osmolality 287 mOsm/kg (285-295) 01/17/22 04:48 Calcium 8.8 mg/dL (8.5-10.5) 01/17/22 04:48 Magnesium 2.6 mg/dL (1.7-2.3) H 01/16/22 02:39 Total Bilirubin 0.5 mg/dL (0.15-1.2) 01/15/22 Unknown AST 68 U/L (0-40) H 01/15/22 Unknown ALT 24 U/L (0-41) 01/15/22 Unknown Alkaline Phosphatase 98 IU/L (40-130) 01/15/22 Unknown Creatine Kinase 6304 U/L (39-308) H* 01/17/22 04:48 Troponin T Baseline 60 ng/L (0-15) H 01/15/22 20:29 Troponin T 120 Minute 59.22 ng/L (0-15) H 01/15/22 22:31 Delta Troponin T -0.78 ABS# (0-10) L 01/15/22 22:31 Troponin T Hi Sens 6Hr 49.37 ng/L (0-15) H 01/16/22 02:39 Troponin T Hi Sens 6Hr Delta -10.63 ng/L (0-12) L 01/16/22 02:39 NT-Pro-B Natriuret Pep 1080 pg/mL (0-125) H 01/15/22 Unknown Total Protein 7.6 g/dL (6.6-8.7) 01/15/22 Unknown Albumin 4.0 g/dL (3.5-5.2) 01/15/22 Unknown Globulin 3.6 g/dL (1.3-4.6) 01/15/22 Unknown Procalcitonin 0.25 ng/mL (0-0.5) 01/15/22 Unknown TSH 2.41 uIU/mL (0.27-4.20) 01/15/22 Unknown Urine Color Yellow (Yellow) 01/15/22 21:40 Urine Appearance Clear (CLEAR) 01/15/22 21:40 Urine pH 5 (5-7) 01/15/22 21:40 Ur Specific [place] 1.010 (1.005-1.030) 01/15/22 21:40 Urine Protein Neg (Negative) 01/15/22 21:40 Urine Glucose (UA) 4+ (Normal) H 01/15/22 21:40 Urine Ketones Negative (Negative) 01/15/22 21:40 Urine Blood 3+ (Negative) H 01/15/22 21:40 Urine Nitrate Negative (Negative) 01/15/22 21:40 Urine Bilirubin Neg (Negative) 01/15/22 21:40 Urine Urobilinogen Norm mg/dL (Negative) 01/15/22 21:40 Ur Leukocyte Esterase Negative (Negative) 01/15/22 21:40 Urine RBC 0-4 /hpf (0-2) H 01/15/22 21:40 Urine WBC 5-10 /hpf (0-5) H 01/15/22 21:40 Ur Squamous Epith Cells 0-4 /hpf (0-5) H 01/15/22 21:40 Amorphous Sediment Not Reportable 01/15/22 21:40 Urine Bacteria 4+ /hpf (NONE) H 01/15/22 21:40 Hyaline Casts 0-4 /lpf H 01/15/22 21:40 Vitals Last Vital Signs Temp 97.7 F 01/18/22 08:00 Pulse 89 01/18/22 08:35 Resp 17 01/18/22 08:35 BP 93/64 01/18/22 08:00 Pulse Ox 97 01/18/22 08:35 Discharge Plan Discharge Patient Disposition: Xfer SNF Condition: Stable Prescriptions: Continued cilostazol 100 mg tablet 100 mg PO BID@, 0RF allopurinol 300 mg tablet 300 mg PO DAILY@07 0RF nitroglycerin [Nitrostat] 0.4 mg tablet, sublingual 0.4 mg SUBLINGUAL Q5M PRN (Reason: Chest Pain) 0RF acetaminophen 325 mg capsule 650 mg PO Q6H PRN (Reason: Pain) 0RF Victoza 3-Zain 0.6 mg/0.1 mL (18 mg/3 mL) pen injector 1.8 mg SUBCUT DAILY@07 0RF (DME) pen needle, diabetic [Easy Comfort Pen Kohler] 31 gauge x 5/16 needle See Rx Instructions .ROUTE .MEDSUPPLY Qty: 100 3RF Rx Instructions: As directed once daily memantine [Namenda] 10 mg tablet 10 mg PO BID@07,19 0RF Xarelto 15 mg tablet 15 mg PO DAILY@19 0RF Rx Instructions: must administer with evening meal insulin glargine 100 unit/mL Solution 30 unit SUBCUT BEDTIME@19 0RF albuterol sulfate 2.5 mg /3 mL (0.083 %) Solution For Nebulization 2.5 mg inhalation Q8H PRN (Reason: Shortness Of Breath) 0RF loperamide 2 mg Tablet See Rx Instructions .ROUTE .COMPLEX 0RF Rx Instructions: 1 cap po every 30 mins prn for diarrhea give one cap after each loose stool to max of 5 caps per day loperamide 2 mg Tablet See Rx Instructions .ROUTE .COMPLEX 0RF Rx Instructions: 2 capsules po every 24 hours prn for diarrhea give 2 caps after first loose stool then go to step 2 lorazepam 0.5 mg Tablet 0.5 mg PO BID PRN (Reason: Anxiety) 0RF Milk of Magnesia 400 mg/5 mL Suspension 5 ml PO DAILY PRN (Reason: Constipation) 0RF bisacodyl 10 mg Suppository 10 mg OK DAILY PRN (Reason: Constipation) 0RF Risperdal 0.5 mg Tablet 0.5 mg PO BID@07,19 0RF folic acid 400 mcg tablet 400 mcg PO DAILY@07 0RF rosuvastatin 20 mg tablet 20 mg PO BEDTIME@19 0RF Changed Lasix 40 mg Tablet 20 mg PO EVERY OTHER DAY Qty: 0 0RF potassium chloride 10 mEq capsule, extended release 10 meq PO EVERY OTHER DAY Qty: 0 0RF Held lisinopril 10 mg tablet 10 mg PO DAILY@07 0RF Hold Instructions: Resume on 01/25/22. metoprolol succinate 25 mg tablet extended release 24 hr 25 mg PO DAILY@07 0RF Hold Instructions: Resume on 01/25/22. Discontinued spironolactone 25 mg Tablet 25 mg PO DAILY@07 0RF Farxiga 10 mg Tablet 10 mg PO DAILY@07 0RF isosorbide mononitrate 30 mg tablet extended release 24 hr 30 mg PO DAILY@07 0RF Discharge Orders: Discharge Order (Routine); Ordered 01/18/22 Ordered By: Misty Whiteside Other Ambulatory Orders: Creatine Phosphokinase (Routine) Timeframe: 3 Days Facility: [facility] - Location: Lab - Main Lab Ordered By: Misty Whiteside Referrals: [facility] [Outside] Gabriel Avery MD [Primary Care Provider] - 7-10 days Discharge Diet: Cardiac Discharge Activity: Use walker/crutches as instructed and Cpap/Bipap as instructed Discharge Attestations Time Spent in Discharge Care*: less than 30 min Quality Metrics Clinical Quality Measures [ No reported AMI, CVA or VTE this stay] Coding Level of Care Code Acute Chg FW DC note Diagnoses Hypotension I95.9 Hyperglycemia R73.9 Cardiogenic shock R57.0 PVD (peripheral vascular disease) I73.9 Chronic gout [id number] Hypertension I10 Hypertension type: essential hypertension Diabetes E11.9 Diabetes mellitus complication status: without complication Diabetes mellitus terminologist insulin use: without terminologist use Diabetes mellitus type: type 2
[2022-01-18] MEDS: midodrine 5 mg TABLET 10 MG PO (09:55)
[2022-01-18 11:19] LABS: SARS Covid-2 Antigen Negative (Negative)
[2022-01-18 12:19] LABS: Glucose Point of Care 237 mg/dL (70-110)
[2022-01-18] MEDS: insulin lispro 100 unit/1 mL SUBCUT (12:42)
--- NOTE | 2022-01-18 13:35 | PC.NURSE ---
report called to [facility] per[facility]. notified.
--- NOTE | 2022-01-18 13:59 | PC.SOCIAL ---
IMM Update Pg. [facility] of [facility] updated and reviewed with patient. Copy provided. Attempted to reach patient's sister, voicemail left requesting a call back.
== END 2022-01-18 16:00 | disposition skilled nursing facility (03) | DRG 312 ==
LOC: ER 17:19 → ICU 19:12 → MEDSURG 01-16 21:44
PROVIDERS: Admitting Provider Internal Medicine; Emergency Provider Family Medicine; PCP Family Medicine; Visit Provider Internal Medicine
DX: I95.2 Hypotension due to drugs (principal); F10.27 Alcohol dependence with alcohol-induced persisting dementia; F05 Delirium due to known physiological condition; M62.82 Rhabdomyolysis; N17.9 Acute kidney failure, unspecified; I25.10 Atherosclerotic heart disease of native coronary artery without angina pectoris; M1A.9XX0 Chronic gout, unspecified, without tophus (tophi); E11.22 Type 2 diabetes mellitus with diabetic chronic kidney disease; I12.9 Hypertensive chronic kidney disease with stage 1 through stage 4 chronic kidney disease, or unspecified chronic kidney disease; N18.9 Chronic kidney disease, unspecified; E11.65 Type 2 diabetes mellitus with hyperglycemia; E11.51 Type 2 diabetes mellitus with diabetic peripheral angiopathy without gangrene; I25.2 Old myocardial infarction; E78.2 Mixed hyperlipidemia; E55.9 Vitamin D deficiency, unspecified; E86.0 Dehydration; Z66 Do not resuscitate; M79.605 Pain in left leg; Z79.01 Long term (current) use of anticoagulants; Z79.4 Long term (current) use of insulin
CPT/HCPCS: 36415; 36416; 51702; 71045; 80048; 80053; 81001; 82550; 82962; 83735; 83880; 84145; 84443; 84484; 85025; 87086; 87426; 93005; 93306; 96361; 96372; 96374; 96375; 99285; A4570; J0696; J1720; J1815 ×2

== ENCOUNTER 2022-01-22 08:11 | Inpatient (IN) | payer MEDICARE, MEDICAID, SELFPAY ==
[2022-01-22] VITALS (45 sets, daily range): BP systolic 72–128; BP diastolic 41–70; PULSE 28–110; RESP 20–37; TEMP 36.5–38.5; O2SAT 89–98; BMI 26.5
--- NOTE | 2022-01-22 08:12 | ED_ITS ---
HPI - SOB/Dyspnea General: Chief Complaint: Shortness of Breath/Dyspnea Stated Complaint: SHORTNESS OFBREATH/ AMS Time Seen by Provider: 01/22/22 08:12 Source: patient Mode of arrival: EMS Limitations: altered mental status History of Present Illness: HPI Narrative: 76-year-old male brought in from [facility] via EMS with complaints of shortness of breath. Patient was seen last week is admitted with hypotension it was thought to be iatrogenic and his medications were adjusted he did require ICU stay and was briefly on Levophed. He returns today is now requiring oxygen. He is requiring 5 to 6 L by [facility] ED PFS: Medical History ASHD (arteriosclerotic heart disease) ASVD (arteriosclerotic vascular disease) Cardiogenic shock Carotid artery disease Chronic gout CKD (chronic kidney disease) Dementia Dementia associated with alcoholism with behavioral disturbance Diabetes Edema History of [place] (myocardial infarction) History of positive PPD Hyperglycemia Hyperlipidemia Hypertension Hypotension Leg pain Pre-procedure lab exam PVD (peripheral vascular disease) SOB (shortness of breath) Spinal stenosis Vitamin D deficiency Volume depletion Surgical History H/O bilateral cataract extraction (Unknown) H/O cataract extraction History of hernia repair (~1995) Family History Other CAD (coronary artery disease) Cancer Unknown family medical history Social History Alcohol intake: never Marital status: / Course Vital Signs: Vital signs: Vital Signs Temperature 99.4 F 01/22/22 12:06 Pulse Rate 75 01/22/22 13:10 Respiratory Rate 21 H 01/22/22 13:10 Blood Pressure 89/41 01/22/22 12:06 Pulse Oximetry 98 01/22/22 13:10 MDM - SOB/Dyspnea Medical Decision Making Patient hypotensive with a right lower lobe pneumonia antibiotics started discussed with hospitalist orders written is also significantly hypotensive and despite fluid bolus did not improve Levophed was started in the emergency room he will be admitted to the ICU. Additionally patient is hyperkalemic which was treated in the ER he also has rhabdomyolysis which had begun last week and appears to have advanced. Patient does have a small PE on CTA hospitalist has written for anticoagulants. Medical Records I reviewed the patient's medical records. Lab Data I reviewed the patient's lab results. : 01/22/22 08:05 01/22/22 08:05 Labs/Radiology: Radiology Impressions Chest X-Ray 01/22/22 08:18 IMPRESSION: 1. It is difficult to exclude free air under the right hemidiaphragm. Recommend PA and lateral chest radiographs to better characterize. 2. Pleural calcification at the right base likely reflects prior asbestos exposure. 3. Probable subsegmental atelectasis at the lung bases. 4. Pleural thickening or pleural fluid on the left. ADDENDUM: 01/22/22 0854 Findings discussed with PANCHITO JANG at 01/22/2022 8:52 AM SINGLE PASS SOIL STABILIZER OPERATOR. Chest CTA 01/22/22 10:17 IMPRESSION: 1. Motion artifact compromises assessment for pulmonary embolus. There is a probable small pulmonary embolus in the left upper lobe. There is suggestion of right heart strain. 2. 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 There is no gross evidence of rupture. 3. Consolidation in the right lower lobe that may reflect atelectasis or pneumonia. 4. Irregular pulmonary nodules at the right base measuring up to 6.8 mm. As per Fleischner Society 2017 guidelines for follow-up and management of pulmonary nodules: For patients at low risk (minimal or absent history of smoking and of other known risk factors), recommend CT at 3-6 months, then consider CT at 18-24 months. For patient at high risk (history of smoking or of other known risk factors), recommend CT at 3-6 months, then CT at 18-24 months. 5. Coronary artery disease. ADDENDUM: 01/22/[address] Bustamante at 01/22/2022 11:50 AM SINGLE PASS SOIL STABILIZER OPERATOR. Laboratory Results WBC 16.4 10^3/uL (4.0-10.0) H 01/22/22 08:05 RBC 4.20 10^6/uL (4.1-5.3) 01/22/22 08:05 Hgb 13.7 g/dL (11.7-16.6) 01/22/22 08:05 Hct 42.0 % (42.0-52.0) 01/22/22 08:05 MCV 100.0 fl (80-94) H 01/22/22 08:05 MCH 32.6 pg (28.0-34.0) 01/22/22 08:05 MCHC 32.6 g/dL (30.0-36.0) 01/22/22 08:05 RDW 14.2 % (12.1-15.1) 01/22/22 08:05 Plt Count 244 10^3/cmm (130-400) 01/22/22 08:05 MPV 9.5 fL (7.4-10.4) 01/22/22 08:05 Neut % (Auto) 81.9 % 01/22/22 08:05 Lymph % (Auto) 7.2 % 01/22/22 08:05 [place] % (Auto) 9.4 % 01/22/22 08:05 Eos % (Auto) 0.1 % 01/22/22 08:05 Baso % (Auto) 0.2 % 01/22/22 08:05 Neut # (Auto) 13.48 10^3/uL (1.8-7.7) H 01/22/22 08:05 Lymph # (Auto) 1.2 10^3/uL (0.8-4.8) 01/22/22 08:05 [place] # (Auto) 1.5 10^3/uL (0.2-0.9) H 01/22/22 08:05 Eos # (Auto) 0.0 10^3/uL (0.0-0.8) 01/22/22 08:05 Baso # (Auto) 0.0 10^3/uL (0.0-0.1) 01/22/22 08:05 Nucleated RBC % (auto) 0 % 01/22/22 08:05 Nucleated RBCs # 0.0 /100WBC 01/22/22 08:05 Specimen Type Arterial 01/22/22 08:26 Sample Site Radial, left 01/22/22 08:26 ABG pH 7.46 (7.35-7.45) H 01/22/22 08:26 ABG pCO2 30.8 mmHg (35-45) L 01/22/22 08:26 ABG pO2 79.1 mmHg (80.0-100.0) L 01/22/22 08:26 ABG HCO3 21.8 mmol/L (22-26) L 01/22/22 08:26 ABG O2 Saturation 97.2 01/22/22 08:26 ABG Base Excess -1.2 mmol/L (-2.0-2.0) 01/22/22 08:26 Anibal Test Pos 01/22/22 08:26 A-a O2 Gradient 19.9 mmHg (5-10) H 01/22/22 08:26 Hematocrit 39.9 % (42-52) L 01/22/22 08:26 Hgb O2 Saturation 95.3 % (95-100) 01/22/22 08:26 Carboxyhemoglobin 1.5 %THgb (0.4-20.1) 01/22/22 08:26 Methemoglobin 0.4 % (0.4-1.5) 01/22/22 08:26 Total Hemoglobin 13.0 g/dL (14-18) L 01/22/22 08:26 Sodium 131.0 mmol/L (131-143) 01/22/22 08:26 Potassium 5.1 mmol/L (3.5-5.0) H 01/22/22 08:26 Glucose 368.0 mg/dL (70-115) H 01/22/22 08:26 Ionized Calcium 1.2 mmol/L (1.1-1.4) 01/22/22 08:26 O2 Delivery Device Nc 01/22/22 08:26 O2 Liters/Min 4.5 % 01/22/22 08:26 FiO2 38.0 % 01/22/22 08:26 Kilnman ID Cak 01/22/22 08:26 Sodium 135 mmol/L (136-145) L 01/22/22 08:05 Potassium 5.4 mmol/L (3.5-5.1) H 01/22/22 08:05 Chloride 99 mmol/L (98-107) 01/22/22 08:05 Carbon Dioxide 22 mmol/L (22-29) 01/22/22 08:05 Anion Gap 19.4 (5-19) H 01/22/22 08:05 BUN 41 mg/dL (8-23) H 01/22/22 08:05 Creatinine 1.2 mg/dL (0.7-1.2) 01/22/22 08:05 GFR Calculation Not Reportable 01/22/22 08:05 Glucose 276 mg/dL (65-115) H 01/22/22 08:05 Calculated Osmolality 300 mOsm/kg (285-295) H 01/22/22 08:05 Lactic Acid 1.5 mmol/L (0.5-2.2) 01/22/22 09:45 Calcium 8.4 mg/dL (8.5-10.5) L 01/22/22 08:05 Magnesium 2.6 mg/dL (1.7-2.3) H 01/22/22 08:05 Total Bilirubin 0.5 mg/dL (0.15-1.2) 01/22/22 08:05 AST 165 U/L (0-40) H 01/22/22 08:05 ALT 51 U/L (0-41) H 01/22/22 08:05 Alkaline Phosphatase 86 IU/L (40-130) 01/22/22 08:05 Creatine Kinase 8706 U/L (39-308) H* 01/22/22 08:05 Troponin T Baseline 69 ng/L (0-15) H 01/22/22 08:05 Troponin T 120 Minute 75.44 ng/L (0-15) H 01/22/22 10:11 Delta Troponin T 6.44 ABS# (0-10) 01/22/22 10:11 NT-Pro-B Natriuret Pep 2311 pg/mL (0-125) H 01/22/22 08:05 Total Protein 5.7 g/dL (6.6-8.7) L 01/22/22 08:05 Albumin 3.0 g/dL (3.5-5.2) L 01/22/22 08:05 Globulin 2.7 g/dL (1.3-4.6) 01/22/22 08:05 Urine Color Yellow (Yellow) 01/22/22 09:05 Urine Appearance Clear (CLEAR) 01/22/22 09:05 Urine pH 5 (5-7) 01/22/22 09:05 Ur Specific [place] 1.020 (1.005-1.030) 01/22/22 09:05 Urine Protein Neg (Negative) 01/22/22 09:05 Urine Glucose (UA) 2+ (Normal) H 01/22/22 09:05 Urine Ketones Negative (Negative) 01/22/22 09:05 Urine Blood 3+ (Negative) H 01/22/22 09:05 Urine Nitrate Negative (Negative) 01/22/22 09:05 Urine Bilirubin Neg (Negative) 01/22/22 09:05 Urine Urobilinogen Norm mg/dL (Negative) 01/22/22 09:05 Ur Leukocyte Esterase Negative (Negative) 01/22/22 09:05 Urine RBC Rare /hpf (0-2) 01/22/22 09:05 Urine WBC 0-4 /hpf (0-5) H 01/22/22 09:05 Ur Squamous Epith Cells 5-10 /hpf (0-5) H 01/22/22 09:05 Amorphous Sediment Not Reportable 01/22/22 09:05 Urine Bacteria 1+ /hpf (NONE) H 01/22/22 09:05 Urine Mucus Trace /hpf 01/22/22 09:05 Hepatitis A IgM Ab Non-reactive (Nonreactive) 01/22/22 08:05 Hep Bs Antigen Non-reactive (Nonreactive) 01/22/22 08:05 Hep B Core IgM Ab Non-reactive (Nonreactive) 01/22/22 08:05 Hepatitis C Antibody Non-reactive (Nonreactive) 01/22/22 08:05 Discharge Plan Discharge Patient Disposition: Admitted As Inpatient Admit Provider: Danilo Love Clinical Impression: Right lower lobe pneumonia, Sepsis, Acute respiratory failure with hypoxia, Hyperkalemia, Rhabdomyolysis, Transaminitis, Pulmonary embolism Condition: Stable Coding Level of Care Code ED Stitch Bonding Machine Drawer In for Dena Snell
--- NOTE | 2022-01-22 08:18 | XRR_ITS ---
PROCEDURE INFORMATION: Exam: XR Chest Exam date and time: 01/22/2022 8:18 AM Age: 76 years old Clinical indication: Cough and dyspnea. TECHNIQUE: Imaging protocol: XR of the chest. Views: 1 view. COMPARISON: CR XR chest 1V portable [id number] 01/15/2022 4:02 PM FINDINGS: Lungs: Low lung volumes. Probable subsegmental atelectasis at the lung bases. Pleural spaces: Pleural calcification at the right base likely reflects prior asbestos exposure. Pleural thickening or pleural fluid on the left. No pneumothorax. Heart/Mediastinum: The cardiac silhouette is approximately unchanged. No gross evidence of pneumomediastinum. Bones/joints: No gross fracture. Intraperitoneal space: It is difficult to exclude free air under the right hemidiaphragm. XR/XR chest 1V portable [id number] IMPRESSION: 1. It is difficult to exclude free air under the right hemidiaphragm. Recommend PA and lateral chest radiographs to better characterize. 2. Pleural calcification at the right base likely reflects prior asbestos exposure. 3. Probable subsegmental atelectasis at the lung bases. 4. Pleural thickening or pleural fluid on the left.
[2022-01-22 08:38] LABS: ABG PCO2 30.8 mmHg (35-45); ABG PH Result 7.46 (7.35-7.45); Alveolar-Arterial Oxygen Gradi 19.9 mmHg (5-10); Arterial Blood Gas Hematocrit 39.9 % (42-52); Base Excess ABG -1.2 mmol/L (-2.0-2.0); Blood Gas Allen Test Pos; Blood Gas LPM 4.5 %; Blood Gas Operator Identificat CAK; Blood Gas Sample Site Radial, left; Blood Gas Sample Type Arterial; Carboxyhemoglobin 1.5 %THgb (0.4-20.1); HCO3 ABG 21.8 mmol/L (22-26); HGB O2 Sat 95.3 % (95-100); Ionized Calcium Level - ABG 1.2 mmol/L (1.1-1.4); Methemoglobin 0.4 % (0.4-1.5); Oxygen Device NC; Oxygen Saturation ABG 97.2; PO2 ABG 79.1 mmHg (80.0-100.0); Potassium Level - ABG 5.1 mmol/L (3.5-5.0)
[2022-01-22 08:44] LABS: Basophils % 0.2 %; Eosinophils % 0.1 %; Hemoglobin 13.7 g/dL (11.7-16.6); Lymphocytes # 1.2 10^3/uL (0.8-4.8); Lymphocytes % 7.2 %; Mean Corpuscular HGB Conc 32.6 g/dL (30.0-36.0); Mean Corpuscular Hemoglobin 32.6 pg (28.0-34.0); Mean Platelet Volume 9.5 fL (7.4-10.4); Monocytes # 1.5 10^3/uL (0.2-0.9); Monocytes % 9.4 %; Neutrophils # 13.48 10^3/uL (1.8-7.7); Neutrophils % 81.9 %; Nucleated Red Blood Cells % 0 %; Platelet Count 244 10^3/cmm (130-400); Red Cell Distribution Width 14.2 % (12.1-15.1); White Blood Count 16.4 10^3/uL (4.0-10.0)
[2022-01-22 09:26] LABS: Alanine Aminotransferase 51 U/L (0-41); Alkaline Phosphatase 86 IU/L (40-130); Anion Gap 19.4 (5-19); Aspartate Amino Transferase 165 U/L (0-40); Blood Urea Nitrogen 41 mg/dL (8-23); Calcium 8.4 mg/dL (8.5-10.5); Carbon Dioxide 22 mmol/L (22-29); Chloride 99 mmol/L (98-107); Globulin 2.7 g/dL (1.3-4.6); Glucose 276 mg/dL (65-115); Magnesium 2.6 mg/dL (1.7-2.3); Osmolality Calculated 300 mOsm/kg (285-295); Potassium 5.4 mmol/L (3.5-5.1); Sodium 135 mmol/L (136-145); Total Bilirubin 0.5 mg/dL (0.15-1.2); Total Protein 5.7 g/dL (6.6-8.7)
[2022-01-22 09:27] LABS: Troponin(5th) Baseline 69 ng/L (0-15)
[2022-01-22 09:45] LABS: Creatine Phosphokinase 8706 U/L (39-308)
--- NOTE | 2022-01-22 09:49 | PC.NURSE ---
Sister called to check on pt. She states she is his only living relative. She does not want him put on a ventilator, but reports no legal documents as his POA. I do not want him put on life support .
[2022-01-22 10:08] LABS: Urine Appearance Clear (CLEAR); Urine Color Yellow (Yellow)
[2022-01-22 10:09] LABS: Add Urine Culture? No; Add Urine Microscopic? YES; Bacteria Urine 1+ /hpf; Bilirubin Urine Neg (Negative); Blood Urine 3+ (Negative); Glucose Urine UA 2+ (Normal); Ketones Urine Negative (Negative); Leukocyte Esterase Urine Negative (Negative); Mucus Urine TRACE /hpf; Nitrate Urine Negative (Negative); Protein Urine Neg (Negative); RBC Urine RARE /hpf (0-2); Urobilinogen Urine Norm (Negative); WBC Urine 0-4 /hpf (0-5); pH Urine 5 (5-7)
[2022-01-22 10:13] LABS: Lactic Sepsis W/Reflex 1.5 mmol/L (0.5-2.2)
[2022-01-22] MEDS: sodium chloride 0.9% 1,000 ML 999 ML IV (10:15)
[2022-01-22] MEDS: sodium polystyrene sulfonate 15 gm/60 mL Btl PO (10:16)
--- NOTE | 2022-01-22 10:17 | CTR_ITS ---
PROCEDURE INFORMATION: Exam: CTA Chest With Contrast Exam date and time: 01/22/2022 10:17 AM Age: 76 years old Clinical indication: Dyspnea TECHNIQUE: Imaging protocol: Computed tomographic angiography of the chest with contrast. 3D rendering (Not supervised by radiologist): MIP and/or 3D reconstructed images were created by the technologist. Radiation optimization: All CT scans at this facility use at least one of these dose optimization techniques: automated exposure control; mA and/or kV adjustment per patient size (includes targeted exams where dose is matched to clinical indication); or iterative reconstruction. Contrast material: VISIPAQUE; Contrast volume: 95 ml; Contrast route: INTRAVENOUS (IV); COMPARISON: CT Chest/Abdomen/Pelvis w IV* 12/11/2018 9:06 PM RADIATION DOSE METRICS: Total DLP (mGy-cm): 476.64 FINDINGS: Pulmonary arteries: Motion artifact compromises assessment for pulmonary embolus. There is a probable small pulmonary embolus in the left upper lobe (series 2, image 167). Aorta: There is aneurysmal dilatation/ectasia of the ascending thoracic aorta measuring 3.9 x 4.2 cm. There is no gross evidence of rupture. Lungs: There is consolidation in the right lower lobe that may reflect atelectasis or pneumonia. There are foci of subsegmental atelectasis or scarring bilaterally. No pulmonary mass. Irregular pulmonary nodules at the right base measuring up to 6.8 mm (image 181). Pleural spaces: No pleural effusion. No pneumothorax. Heart: Coronary arterial calcifications are noted. No pericardial effusion. Heart RV/LV ratio: The RV to LV ratio is 1.2. Lymph nodes: A right hilar lymph node measures 1.7 x 2.1 cm. Diaphragm: Small hiatal hernia. Liver: There is a small calcification in the right hepatic lobe. A benign adrenal adenoma on the right measures 1.2 cm. Bones/joints: No no acute fracture is seen. Soft tissues: No gross soft tissue swelling. CT/CT angio chest PE protcl [id number] IMPRESSION: 1. Motion artifact compromises assessment for pulmonary embolus. There is a probable small pulmonary embolus in the left upper lobe. There is suggestion of right heart strain. 2. 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 There is no gross evidence of rupture. 3. Consolidation in the right lower lobe that may reflect atelectasis or pneumonia. 4. Irregular pulmonary nodules at the right base measuring up to 6.8 mm. As per Fleischner Society 2017 guidelines for follow-up and management of pulmonary nodules: For patients at low risk (minimal or absent history of smoking and of other known risk factors), recommend CT at 3-6 months, then consider CT at 18-24 months. For patient at high risk (history of smoking or of other known risk factors), recommend CT at 3-6 months, then CT at 18-24 months. 5. Coronary artery disease.
--- NOTE | 2022-01-22 10:18 | ECG_ITS ---
[facility] Test Date: 2022-01-22 Pat Name: Richard Bose Department: Room: Gender: Male Pearl Cutter: : 1945 Requested By: Elier John Order Number: [id number] Con MD: Jacinta Quiroga M.D. Measurements Intervals [place] Rate: 107 P: [place]: QRS: -30 QRSD: 113 T: 28 QT: 323 QTc: 431 Interpretive Statements Atrial flutter with rapid response Incomplete right bundle branch block Compared to ECG 01/15/2022 19:42:32 No significant change Electronically Signed On 01-22-2022 16:17:29 TRADESHOW WORKER by Jacinta Quiroga M.D. [email or web address] [email or web address] health [id number]
[2022-01-22 10:28] LABS: NT Pro B Type Natriuretic Pept 2311 pg/mL (0-125)
[2022-01-22] MEDS: insulin regular-human 100 units/1 mL 10 UNIT IVP (10:32)
[2022-01-22 10:38] LABS: Troponin 5 2HR 75.44 ng/L (0-15)
[2022-01-22 10:42] LABS: Troponin 5 2HR Delta 6.44 ABS# (0-10)
--- NOTE | 2022-01-22 10:59 | P.HP_ITS ---
Providers/Chief Complaint Admitting Physician: Danilo Love MD, hospitalist Primary Care Provider: Gabriel Avery MD Chief Complaint: SHORTNESS OFBREATH/ AMS History of Present Illness Richard Bose is a 76 year old male nursing facility patient with underlying dementia who presents to the hospital with shortness of breath, fever. He was recently in the hospital from January 15 to January 18 with hypotension thought to be secondary to medications. Nursing facility staff report that for the last several days he has had increasing shortness of breath, cough, decreased p.o. intake. He has not had any vomiting or diarrhea. He did have a rapid Covid his last admission on January 15. Review of Systems General: Reports: ROS unobtainable due to medical condition (Dementia) Medications/Allergies Home Medications Medication Instructions Recorded Confirmed Last Taken Type acetaminophen 325 mg capsule 650 mg PO Q6H PRN cap 11/25/19 01/22/22 01/18/22 History allopurinol 300 mg tablet 300 mg PO DAILY@07 tab 11/25/19 01/22/22 01/22/22 History cilostazol 100 mg tablet 100 mg PO BID@11/25/19 01/22/22 01/22/22 07:00 History liraglutide 0.6 mg/0.1 mL (18 mg/3 1.8 mg SUBCUT DAILY@07 11/25/19 01/22/22 01/22/22 07:10 History mL) subcutaneous pen injector (Victoza 3-Zain) lisinopril 10 mg tablet 10 mg PO DAILY@07 tab 11/25/19 01/22/22 01/18/22 History nitroglycerin 0.4 mg sublingual 0.4 mg SUBLINGUAL Q5M PRN 11/25/19 01/22/22 Unknown History tablet (Nitrostat) pen needle, diabetic 31 gauge x #100 each 12/15/20 01/22/22 Unknown Rx 5/16 (Easy Comfort Pen [place]) memantine 10 mg tablet (Namenda) 10 mg PO BID@, tab 04/27/21 01/22/22 01/22/22 07:00 History rivaroxaban 15 mg tablet (Xarelto) 15 mg PO DAILY@08/31/21 01/22/22 01/21/22 History albuterol sulfate 2.5 mg INHALATION Q8H PRN 01/15/22 01/22/22 01/21/22 History bisacodyl 10 mg rectal suppository 10 mg MO DAILY PRN 01/15/22 01/22/22 Unknown History folic acid 400 mcg tablet 400 mcg PO DAILY@01/15/22 01/22/22 01/22/22 History insulin glargine 100 unit/mL 30 unit SUBCUT BEDTIME@01/15/22 01/22/22 01/21/22 History subcutaneous solution loperamide 2 mg tablet See Rx Instructions .ROUTE .COMPLEX 01/15/22 01/22/22 Unknown History loperamide 2 mg tablet See Rx Instructions .ROUTE .COMPLEX 01/15/22 01/22/22 Unknown History lorazepam 0.5 mg tablet 0.5 mg PO BID PRN 01/15/22 01/22/22 01/12/22 History magnesium hydroxide 400 mg/5 mL 5 ml PO DAILY PRN 01/15/22 01/22/22 Unknown His tory oral suspension (Milk of Magnesia) metoprolol succinate 25 mg 25 mg PO DAILY@01/15/22 01/22/22 01/18/22 History tablet,extended release 24 hr risperidone 0.5 mg tablet 0.5 mg PO BID@01/15/22 01/22/22 01/22/22 07:00 History (Risperdal) rosuvastatin 20 mg tablet 20 mg PO BEDTIME@01/15/22 01/22/22 01/21/22 History potassium chloride 10 mEq 10 meq PO EVERY OTHER DAY #0 cap 01/18/22 01/22/22 01/21/22 Rx capsule,extended release furosemide 40 mg tablet (Lasix) 20 mg PO Q48H 01/22/22 01/22/22 01/20/22 History Allergies Allergy/AdvReac Type Severity Reaction Status Date / Time Penicillins Allergy Unknown Verified 01/22/22 10:27 metformin AdvReac Unknown Verified 01/22/22 10:27 PFSH Acute PFSH: Medical History ASHD (arteriosclerotic heart disease) ASVD (arteriosclerotic vascular disease) Cardiogenic shock Carotid artery disease Chronic gout CKD (chronic kidney disease) Dementia Dementia associated with alcoholism with behavioral disturbance Diabetes Edema History of [place] (myocardial infarction) History of positive PPD Hyperglycemia Hyperlipidemia Hypertension Hypotension Leg pain Pre-procedure lab exam PVD (peripheral vascular disease) SOB (shortness of breath) Spinal stenosis Vitamin D deficiency Volume depletion Surgical History H/O bilateral cataract extraction (Unknown) H/O cataract extraction History of hernia repair (~1995) Family History Other CAD (coronary artery disease) Cancer Unknown family medical history Social History Alcohol intake: never Marital status: / Vitals/I&O/Wt Last Vital Signs Temp 101.3 F H 01/22/22 10:15 Pulse 93 01/22/22 10:25 Resp 37 H 01/22/22 10:25 BP 72/58 01/22/22 10:25 Pulse Ox 90 01/22/22 10:25 Weight last 48 hrs Weight 83.915 kg Physical Exam Narrative: General exam is a confused white male, who is slow to respond HEENT: Pupils equally round. Oropharynx clear. Neck is supple no lymphadenopathy or thyromegaly Cardiovascular regular rate and rhythm without murmur Lungs coarse breath sounds at the bases, with a faint expiratory wheeze heard bibasilar Abdomen is soft. Positive bowel sounds. No obvious organomegaly exam is deferred Extremities no cyanosis clubbing. Trace edema is present bilaterally. There is an ecchymotic area, posterior both calves. Skin without rash Neurologic: Confused, no focal deficits Data : 01/22/22 08:05 01/22/22 08:05 Other Labs: Previous echocardiogram January 2022 demonstrated preserved EF, mild aortic stenosis EKG demonstrates normal sinus rhythm, normal axis, no acute changes Chest x-ray crowding, question pneumonia, cannot rule out free air right lung ABG demonstrated pH 7.46, PCO2 of 31, PO2 of 79 on 4.5 L of oxygen Magnesium 2.6, total bilirubin normal, AST 165, ALT 51, alk phos 86, CK 06/24/2006, troponin 69 with repeat of 75 BNP 2311 Urinalysis 0-4 white blood cells, rare red blood cells A&P Assessment and plan (1) Fever: Appears to pneumonia Wean oxygen as tolerated IV antibiotics consisting of vancomycin and Zosyn Check blood culture, sputum culture, MRSA PCR, Covid PCR, influenza a and B Pulmonary toilet with DuoNeb and budesonide Status: Acute (2) Sepsis: Fever, hypotension, encephalopathy, elevated white blood cell count all consistent with sepsis. Lactic acid level was not elevated. IV antibiotics as above, await blood culture Secondary to hypotension norepinephrine was initiated Status: Acute (3) Acute respiratory failure with hypoxia: Currently requiring around 5 L of oxygen. Wean as tolerated. Does have evidence of accessory muscle use, abnormal lung exam Status: Acute (4) Hyperkalemia: Kayexalate given in the emergency department Recheck BMP tomorrow Status: Acute (5) Rhabdomyolysis: Currently without significant renal dysfunction Repeat CK in the morning Continue hydration as tolerated but will reduce rate to 75 cc an hour secondary to concerns of fluid overload Status: Acute (6) Transaminitis: Check hepatitis panel May be related to sepsis Status: Acute (7) Pulmonary embolism: Seen on CTA. Full dose Lovenox Check venous duplex lower extremities Consider changing Eliquis on discharge Status: Acute Plan Dementia. Patient's baseline is worsened and most consistent with acute metabolic encephalopathy from sepsis. History of coronary disease Hypertension, now hypotensive. Hold medication. Atrial fibrillation, chronically on Xarelto. Hold this since he is going on Lovenox for concern of pulmonary embolism Diabetes mellitus type 2. Initiate sliding scale insulin. Allow natural per nursing facility records Lovenox for DVT prophylaxis Protonix for GI prophylaxis Attestations Medical Necessity Statement*: Will need greater than 2 midnight stay for evaluation and treatment of sepsis with IV antibiotics as well as fever and respiratory failure Critical Care Time: The high probability of a clinically significant, sudden or life threatening deterioration of the patient's [vascular, pulmonary, cardiac, infectious disease system(s) required my full and direct attention, intervention and personal management. The critical care time is as shown. This time is in addition to time spent performing any reported procedures but includes the following: [x] Data and vital sign review and interpretation [x] Patient assessment, examination and intervention [x] Documentation [x] Medication orders and management Critical Care Time (min): 50 Coding Level of Care Code Acute Pile Driver Operator Barge Mounted for Dena Snell Diagnoses Fever R50.9 Sepsis A41.9 Acute respiratory failure with hypoxia J96.01 Hyperkalemia E87.5 Rhabdomyolysis M62.82 Transaminitis R74.01 Pulmonary embolism I26.99
--- NOTE | 2022-01-22 11:15 | PC.PHAR ---
pt is from [facility]-stefani nurse from [facility] states the pt had all his am meds today-states the pt had his victoza @07:10 today
[2022-01-22] MEDS: iodixanol 320 mg/mL 100mL Btl IV (11:43)
--- NOTE | 2022-01-22 12:40 | USCV_ITS ---
Richard Bose Age: 76 Gender: M : 1945 Exam Date: 01/22/2022 15:18 Ordering Phys: Danilo Love MD Technologist: Yonis Carmichael Exam Location: [facility] [place]_ Indication: PE HISTORY: PE PROCEDURES: Venous duplex imaging was performed in bilateral lower extremities. The following venous structures were evaluated: common femoral vein, profunda vein, proximal portion of the greater saphenous vein, superficial femoral vein, and the popliteal vein. In addition, the posterior tibial and peroneal trunk were evaluated. Serial compression, augmentation maneuvers, and spectral Doppler flow evaluation were performed. FINDINGS: Normal 2-D Doppler and augmentation and compressibility throughout the lower extremity venous structures. Additional imaging through the proximal calf veins also reveals no thrombus. Limited evaluation of the greater saphenous vein is patent with no thrombus.. CONCLUSIONS No evidence of right lower extremity DVT. No evidence of left lower extremity DVT. Macho Castellanos MD (Electronically Signed) Final Date: 22 January 2022 17:11 S
[2022-01-22] MEDS: ipratropium-albuterol 3 mL Neb INHALATION ×2 (13:09→21:18)
[2022-01-22 13:23] LABS: Hepatitis A Antibody IgM Non-Reactive (Nonreactive); Hepatitis B Core IgM Non-Reactive (Nonreactive); Hepatitis B Surface Antigen Non-Reactive (Nonreactive); Hepatitis C Virus Antibody Non-Reactive (Nonreactive)
--- NOTE | 2022-01-22 14:18 | ECG_ITS ---
[facility] Test Date: 2022-01-22 Pat Name: Richard Bose Department: Room: ICU02 Gender: Male Police Captain Precinct: : 1945 Requested By: Elier John Order Number: [id number] Con MD: Jacinta Quiroga M.D. Measurements Intervals [place] Rate: 76 P: [place]: QRS: -3 QRSD: 116 T: 76 QT: 393 QTc: 442 Interpretive Statements ATRIAL FLUTTER INCOMPLETE RIGHT BUNDLE BRANCH BLOCK Compared to ECG 01/22/2022 08:51:52 No significant change Electronically Signed On 01-23-2022 8:04:20 RUBBER BOOTS AND SHOES REPAIRER by Jacinta Quiroga M.D. [email or web address] medical [email or web address] [email or web address] [id number]
[2022-01-22] MEDS: vancomycin 1,000 MG in sodium chloride 0.9% 250 ML 250 MG IV (14:31)
[2022-01-22] MEDS: sodium chloride 0.9% 1,000 ML 75 ML IV (14:32)
[2022-01-22] MEDS: enoxaparin 100 mg/mL Syringe 80 MG SUBCUT ×2 (14:33→23:12)
--- NOTE | 2022-01-22 14:42 | PC.NURSE ---
Admission Pt was admitted to ICU at 1200 via bed from ER. Pt belongings include upper and lower dentures. Pressure ulcers are noted to buttocks and lateral calves. Left buttocks pressure injury is stage 2 with unblanchable edges. Right buttocks is a deep tissue injury and is unblanchable. Bilateral calfs are deep tissue injuries and are unblanchable. Pt is only A&O to self. Levophed started shortly after admission.
[2022-01-22 14:55] LABS: Troponin 5 6HR 75.51 ng/L (0-15)
[2022-01-22 14:58] LABS: Troponin 5 6HR Delta 6.51 ng/L (0-12)
--- NOTE | 2022-01-22 16:00 | PC.NURSE ---
Pt is fluid responsive. Dr. bailey.
[2022-01-22] MEDS: sodium chloride 0.9% 500 ML 250 ML IV (17:21)
[2022-01-22] MEDS: insulin lispro 100 unit/1 mL SUBCUT ×2 (17:47→20:58)
--- NOTE | 2022-01-22 17:49 | ECG_ITS ---
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 Measurements Intervals [place] Rate: 72 P: [place]: QRS: -18 QRSD: 118 T: 77 QT: 402 QTc: 442 Interpretive Statements ATRIAL FLUTTER INCOMPLETE RIGHT BUNDLE BRANCH BLOCK [90+ ms QRS DURATION, TERMINAL R IN V1/V2, 40+ ms S IN I/aVL/V4/V5/V6] ABNORMAL RHYTHM ECG Compared to ECG 01/22/2022 16:43:38 Incomplete right bundle-branch block now present Atrial fibrillation no longer present Right bundle-branch block no longer present Electronically Signed On 01-22-2022 20:17:31 WATCH DIAL STONER by Jacinta Quiroga M.D. [email or web address]
[2022-01-22 17:52] LABS: Glucose Point of Care 243 mg/dL (70-110)
[2022-01-22 18:06] LABS: ABG PCO2 32.2 mmHg (35-45); ABG PH Result 7.42 (7.35-7.45); Alveolar-Arterial Oxygen Gradi 15.5 mmHg (5-10); Blood Gas Allen Test Pos; Blood Gas Operator Identificat GD; Blood Gas Sample Site Radial, right; Blood Gas Sample Type Arterial; Carboxyhemoglobin 1.3 %THgb (0.4-20.1); HCO3 ABG 20.7 mmol/L (22-26); HGB O2 Sat 92.5 % (95-100); Ionized Calcium Level - ABG 1.2 mmol/L (1.1-1.4); Methemoglobin 0.6 % (0.4-1.5); Oxygen Device NC; Oxygen Saturation ABG 94.3; PO2 ABG 69.9 mmHg (80.0-100.0); Potassium Level - ABG 4.3 mmol/L (3.5-5.0); Total Hemoglobin 12.7 g/dL (14-18)
--- NOTE | 2022-01-22 18:44 | PC.NURSE ---
Pause was alarming on the monitor and showed [address] lopez aware and new orders were entered.
[2022-01-22 18:50] LABS: Blood Urea Nitrogen 48 mg/dL (8-23); Calcium 9.3 mg/dL (8.5-10.5); Carbon Dioxide 17 mmol/L (22-29); Chloride 100 mmol/L (98-107); Glucose 209 mg/dL (65-115); Magnesium 2.8 mg/dL (1.7-2.3); Osmolality Calculated 295 mOsm/kg (285-295); Sodium 133 mmol/L (136-145)
--- NOTE | 2022-01-22 19:00 | PC.NURSE ---
Levophed Upon assessment of patient, levophed administering at 14 mcg/min while MAR displays 10 mcg/min. MAR updated to show actual administration rate.
[2022-01-22] MEDS: norepinephrine 8 MG in dextrose 5 % 500 ML 60.96 MG IV (19:27)
--- NOTE | 2022-01-22 20:15 | PC.NURSE ---
Cheetah/Banuelos Cheetah to be performed following 500 L NS bolus per nurse shift report. Cheetah performed with a resulting stroke volume index of -2.8%, not fluid responsive. Following cheetah use, patient voided in bed; urine unable to be measured. Dr. Garcia contacted and notified of Cheetah results and incontinence. Orders received to place a banuelos catheter now. Banuelos placed as indicated.
[2022-01-22 20:30] LABS: Glucose Point of Care 325 mg/dL (70-110)
[2022-01-22 20:47] LABS: Adenovirus Not Detected (NOT DETECT); Chlamydia Pneumoniae Not Detected (NOT DETECT); Coronavirus 229E,HKU1,NL63,OC4 Not Detected (NOT DETECT); Human Metapneumovirus Not Detected (NOT DETECT); Human Rhinovirus/Enterovirus Not Detected (NOT DETECT); Influenza A Not Detected (NOT DETECT); Influenza A H1 Not Detected (NOT DETECT); Influenza A H1-2009 Not Detected (NOT DETECT); Influenza A H3 Not Detected (NOT DETECT); Influenza B Not Detected (NOT DETECT); Mycoplasma Pneumoniae Not Detected (NOT DETECT); Parainfluenza Virus Type 1 Not Detected (NOT DETECT); Parainfluenza Virus Type 2 Not Detected (NOT DETECT); Parainfluenza Virus Type 3 Not Detected (NOT DETECT); Parainfluenza Virus Type 4 Not Detected (NOT DETECT); Respiratory Syncytial Virus A Not Detected (NOT DETECT); Respiratory Syncytial Virus B Not Detected (NOT DETECT); SARS-COV-2 Not Detected (NOT DETECT)
[2022-01-22 20:58] LABS: Glucose Point of Care 248 mg/dL (70-110)
[2022-01-22] MEDS: budesonide 0.5 mg/2 mL Neb INHALATION (21:18)
[2022-01-23] VITALS (66 sets, daily range): BP systolic 87–169; BP diastolic 46–86; PULSE 72–99; RESP 14–26; TEMP 36.4–36.7; O2SAT 90–99; BMI 32.3
[2022-01-23] MEDS: vancomycin 1,000 MG in sodium chloride 0.9% 250 ML 250 MG IV ×2 (00:47→15:37)
[2022-01-23] MEDS: ipratropium-albuterol 3 mL Neb INHALATION ×4 (03:17→21:11)
[2022-01-23] MEDS: norepinephrine 8 MG in dextrose 5 % 500 ML 45.72 MG IV (05:10)
[2022-01-23 05:42] LABS: Basophils % 0.2 %; Eosinophils # 0.1 10^3/uL (0.0-0.8); Eosinophils % 0.2 %; Hematocrit 39.3 % (42.0-52.0); Hemoglobin 12.6 g/dL (11.7-16.6); Lymphocytes # 1.7 10^3/uL (0.8-4.8); Lymphocytes % 8.4 %; Mean Corpuscular HGB Conc 32.1 g/dL (30.0-36.0); Mean Corpuscular Hemoglobin 33.2 pg (28.0-34.0); Mean Corpuscular Volume 103.4 fl (80-94); Mean Platelet Volume 9.7 fL (7.4-10.4); Monocytes % 9.8 %; Neutrophils # 16.38 10^3/uL (1.8-7.7); Neutrophils % 80.1 %; Nucleated Red Blood Cells % 0 %; Platelet Count 233 10^3/cmm (130-400); Red Cell Distribution Width 14.2 % (12.1-15.1); White Blood Count 20.5 10^3/uL (4.0-10.0)
[2022-01-23 06:02] LABS: Magnesium 2.7 mg/dL (1.7-2.3)
[2022-01-23 06:08] LABS: Alanine Aminotransferase 51 U/L (0-41); Albumin Level 2.4 g/dL (3.5-5.2); Alkaline Phosphatase 86 IU/L (40-130); Anion Gap 15.2 (5-19); Aspartate Amino Transferase 151 U/L (0-40); Blood Urea Nitrogen 35 mg/dL (8-23); Calcium 8.9 mg/dL (8.5-10.5); Carbon Dioxide 21 mmol/L (22-29); Chloride 106 mmol/L (98-107); Creatinine Clr Calc Pharmacy 70.9133; Globulin 3.9 g/dL (1.3-4.6); Glucose 239 mg/dL (65-115); Osmolality Calculated 302 mOsm/kg (285-295); Potassium 4.2 mmol/L (3.5-5.1); Sodium 138 mmol/L (136-145); Total Bilirubin 0.4 mg/dL (0.15-1.2); Total Protein 6.3 g/dL (6.6-8.7)
[2022-01-23 06:41] LABS: Creatine Phosphokinase 6905 U/L (39-308)
--- NOTE | 2022-01-23 07:06 | USCV_ITS ---
Richard Bose Age: 76 Gender: M : 1945 Exam Date: 01/23/2022 08:51 Ordering Phys: Danilo Love MD Technologist: SATYA Exam Location: [facility] [place] Indication: ECHO LIMITED FOR EF BP: 93 / 60 HR: 99 Rhythm: Other Technical Quality: Technically difficult study MEASUREMENTS (Male / Female) Normal Values 2D ECHO LV Diastolic Diameter PLAX 2.8 cm 4.2 - 5.9 / 3.9 - 5.3 cm LV Systolic Diameter PLAX 2.1 cm IVS Diastolic Thickness 1.6 cm 0.6 - 1.0 / 0.6 - 0.9 cm IVS Systolic Thickness 1.2 cm LVPW Diastolic Thickness 1.1 cm 0.6 - 1.0 / 0.6 - 0.9 cm LVPW Systolic Thickness 1.4 cm LVOT Diameter 2.0 cm LV Ejection Fraction 2D Teich 52.6 % LV Ejection Fraction MOD 2C 56.6 % LV Ejection Fraction 2C AL 57.7 % LA Diameter 2.6 cm LA Width 3.9 cm LA Height 5.3 cm RA Width 3.4 cm RA Height 4.6 cm Aorta at Sinotubular Diameter 2.1 cm M-MODE Aortic Annulus Diameter 2.4 cm LA Ao Ratio MM 1.5 MV E Point Septal Separation 0.5 cm DOPPLER Right Atrial Pressure 3.0 mmHg FINDINGS Left Ventricle LV size and ejection fraction appears to be within normal limits. Technically very difficult study. Segmental wall motion analysis difficult Right Ventricle Possibly normal RV size and ejection fraction Right Atrium Mildly increased right atrial size. Left Atrium Mildly increased left atrial size. Mitral Valve Thickened mitral valve. Moderate mitral annular calcification. Aortic Valve Thickened aortic valve. Tricuspid Valve Tricuspid valve not well visualized. Pulmonic Valve Pulmonic valve not well visualized. Pericardium No significant pericardial effusion Aorta Normal aortic annulus size. CONCLUSIONS LV size and ejection fraction appears to be within normal limits. Technically very difficult study. Segmental wall motion analysis difficult. Mild biatrial enlargement. Thickened mitral valve. Moderate mitral annular calcification. Thickened aortic valve. There is no pericardial effusion. Technically difficult study because of the poor ultrasonic window. Dr Sathish Rod MD [facility] (Electronically Signed) Final Date: 23 January 2022 15:15 S
[2022-01-23 07:40] LABS: Glucose Point of Care 239 mg/dL (70-110)
[2022-01-23] MEDS: pantoprazole 40 mg SDV IVP (08:06)
[2022-01-23] MEDS: insulin lispro 100 unit/1 mL SUBCUT ×4 (08:06→20:51)
[2022-01-23] MEDS: budesonide 0.5 mg/2 mL Neb INHALATION ×2 (08:11→21:11)
--- NOTE | 2022-01-23 08:32 | P.PN_ITS ---
Documented by User: ELVIRA Villarreal STDLIGIA 01/23/22 08:52 Subjective Subjective: Patient is lying in bed comfortably. Blood pressure have continued to be soft overnight requiring norepinephrine. He is difficult to arouse, but is able to answer questions with some delay. Explains that he is doing alright but continues to complain of dyspnea. Denies any fevers or chills. Denies any other concerns today. Medications: Reviewed: Yes Vitals/I&O/Wt Last Vital Signs Temp 97.8 F 01/23/22 04:00 Pulse 74 01/23/22 07:48 Resp 24 H 01/23/22 07:48 BP 124/67 01/23/22 06:15 Pulse Ox 94 01/23/22 07:48 01/22/22 01/23/22 01/23/22 22:59 06:59 14:59 Intake Total 1072.949 / 9288.170 9204.750 / 2740.750 Output Total 475 / 475 575 / 1050 Balance 597.949 / 378.492 6174.750 / 1690.750 Weight last 48 hrs Weight 102.058 kg Weight 83.9 kg Weight 83.915 kg Physical Exam 2 Narrative: General: Ill appearing elderly male lying in bed in inclined position. HEENT: Normocephalic, atraumatic. Pupils equal and round. Cardiac: Regular rate and rhythm. S1 S2 present. No murmurs rubs or gallops. Peripheral pulse diminished. Respiratory: Wheezes and coarse breath sounds still present. Rales improved. GI: Soft, nontender, nondistended, normoactive, no organomegaly appreciated. Extremities: Pitting edema still present, no cyanosis or clubbing appreciated. Ecchymoses present over posterior portion of bilateral lower extremities. Urinary Catheter Management: Lopez: Cath Placed During This Visit: yes Reason for Continuing Indwelling Catheter: Accurate Measurement of Urinary Output in Critically Ill Patients Urinary Catheter Date of Insertion: 01/22/22 Urinary Catheter Time of Insertion: 20:28 Data : 01/23/22 04:44 01/23/22 04:44 Other Labs: Neutrophil # 16.38 Magnesium 2.7 AST 151 ALT 51 CK 6905 Venous Doppler: No evidence of DVTs bilateral lower extremities. Micro: Microbiology 01/22/22 14:02 Blood Culture - Preliminary Blood SPECIMEN COLLECTED 01/22/22 14:00 Blood Culture - Preliminary Blood SPECIMEN COLLECTED A&P Assessment and plan (1) Fever: Appears to have pneumonia Continue to wean oxygen as tolerated Continue IV antibiotics consisting of vancomycin and Zosyn Covid PCR, Influenza A/B negative. Blood culture, sputum culture, MRSA PCR, still pending. Continue pulmonary toilet with DuoNeb and budesonide Status: Acute (2) Sepsis: Patient has remained afebrile since admission, continues to have soft blood pressures requirng norepinephrine, continues to be encephalopathic. Leuokocytosis still present. Continue IV antibiotics as above, blood culture pending Continue norepinephrine for hypotension Status: Acute (3) Acute respiratory failure with hypoxia: Currently requiring around 3 L of oxygen per nasal cannula, wean as tolerated. Rales on lung exam are improving, accessory muscle use for respiratory appears to be decreased Status: Acute (4) Hyperkalemia: Kayexalate was initially given in emergency department, potassium this AM is 4.2 Status: Acute (5) Rhabdomyolysis: Continues to have normal renal function, BUN 35, Cr 1.0 CK is trending downward, currently 6905 Continue hydration as tolerated but will reduce rate to 75 cc an hour secondary to concerns of fluid overload Status: Acute (6) Transaminitis: Hepatitis panel within normal limits, likely related to sepsis Status: Acute (7) Pulmonary embolism: Seen on CTA Continue Full dose Lovenox Venous doppler normal findings. Consider changing to Eliquis on discharge Status: Acute Plan Dementia. Patient's baseline is worsened and most consistent with acute metabolic encephalopathy from sepsis. History of coronary disease Hypertension, now hypotensive. Continue to hold medication. Atrial fibrillation, chronically on Xarelto. Hold this since he is going on Lovenox for concern of pulmonary embolism Diabetes mellitus type 2. Initiate sliding scale insulin. 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 Blood pressure have continued to be soft overnight requiring norepinephrine. He is difficult to arouse, but is able to answer questions with some delay. Explains that he is doing alright but continues to complain of dyspnea. Denies any fevers or chills. Denies any other concerns today. Agree with above. I interviewed the patient as well. Mental status is about the same as yesterday. Physical Exam Narrative: General: Ill appearing elderly male lying in bed in inclined position. HEENT: Normocephalic, atraumatic. Pupils equal and round. Cardiac: Regular rate and rhythm. S1 S2 present. No murmurs rubs or gallops. Peripheral pulse diminished. Respiratory: Wheezes and coarse breath sounds still present. Rales improved. GI: Soft, nontender, nondistended, normoactive, no organomegaly appreciated. Extremities: Pitting edema still present, no cyanosis or clubbing appreciated. Ecchymoses present over posterior portion of bilateral lower extremities. Agree with above. We will try to offload pressure over the posterior lateral calves secondary to findings as described above. Urinary Catheter Management: Lopez: Cath Placed During This Visit: yes Data : 01/23/22 04:44 01/23/22 04:44 A&P Assessment and plan (1) Fever: Secondary to pneumonia Continue to wean oxygen as tolerated Continue IV antibiotics consisting of vancomycin and Zosyn Covid PCR, Influenza A/B negative. Blood culture, sputum culture, MRSA PCR, still pending. Continue pulmonary toilet with DuoNeb and budesonide Status: Acute (2) Sepsis: Patient has remained afebrile since admission, continues to have soft blood pressures requirng norepinephrine, continues to be encephalopathic. Leuokocytosis still present. Continue IV antibiotics as above, blood culture pending Continue norepinephrine for hypotension. I think we will be able to wean this some today. Status: Acute (3) Acute respiratory failure with hypoxia: Status: Acute (4) Hyperkalemia: Status: Acute (5) Rhabdomyolysis: Continues to have normal renal function, BUN 35, Cr 1.0 CK is trending downward, currently 6905 Continue hydration as tolerated but will reduce rate to 75 cc an hour secondary to concerns of fluid overload Overall slowly improving Status: Acute (6) Transaminitis: Hepatitis panel within normal limits, likely related to sepsis No specific liver issues noted on his CTA chest.' We will do hepatitis panel, acute Status: Acute (7) Pulmonary embolism: Status: Acute Plan Dementia. Patient's baseline is worsened and most consistent with acute metabolic encephalopathy from sepsis. This is about the same as it was yesterday. History of coronary disease Hypertension, now hypotensive. Continue to hold medication. Atrial fibrillation, chronically on Xarelto. Hold this since he is going on Lovenox for concern of pulmonary embolism Diabetes mellitus type 2. Continue sliding scale insulin. Allow natural per nursing facility records Lovenox for DVT prophylaxis Protonix for GI prophylaxis Attestations Medical Necessity Statement*: Needs continued hospital stay in the ICU secondary to sepsis with hypotension secondary to pneumonia. Currently still receiving IV pressors. Critical Care Time: The high probability of a clinically significant, sudden or life threatening deterioration of the patient's [vascular, infectious disease, pulmonary system(s) required my full and direct attention, intervention and personal management. The critical care time is as shown. This time is in addition to time spent performing any reported procedures but includes the following: [x] Data and vital sign review and interpretation [x] Patient assessment, examination and intervention [x] Documentation [x] Medication orders and management Critical Care Time (min): 32 Coding Level of Care Code Acute Elastic Attacher Overlock for [facility] Alis Diagnoses Fever R50.9 Sepsis A41.9 Acute respiratory failure with hypoxia J96.01 Hyperkalemia E87.5 Rhabdomyolysis M62.82 Transaminitis R74.01 Pulmonary embolism I26.99
[2022-01-23 11:10] LABS: Glucose Point of Care 227 mg/dL (70-110)
[2022-01-23] MEDS: enoxaparin 100 mg/mL Syringe 80 MG SUBCUT ×2 (11:14→23:34)
[2022-01-23] MEDS: sodium chloride 0.9% 1,000 ML 75 ML IV (11:21)
--- NOTE | 2022-01-23 15:03 | PC.NURSE ---
IV infiltrated with levophed running in left AC. Bruising was noted around area. IV was stopped, heat applied and limb was elevated. Dr. Love and pharmacy aware. Will monitor site.
[2022-01-23 17:31] LABS: Glucose Point of Care 156 mg/dL (70-110)
--- NOTE | 2022-01-23 18:06 | PC.NURSE ---
Pt has become more alert this shift. He still remains A&O to self only but he will respond to commands. Levophed titrated off. Patient has been turned Q2H but has been yelling out with every turn.
[2022-01-23] MEDS: acetaminophen 325 mg Tablet 650 MG PO (19:32)
[2022-01-23 20:41] LABS: Glucose Point of Care 150 mg/dL (70-110)
--- NOTE | 2022-01-23 20:45 | PC.NURSE ---
Morphine Patient complaining of pain in legs. Previous tylenol administration did not relieve pain. Dr. Garcia contacted and order received for Morphin 1 mg Q 4H PRN for severe pain. See MAR for administration.
[2022-01-23] MEDS: morphine 4 mg/mL SDV 1 mL 1 MG IVP (22:02)
--- NOTE | 2022-01-23 23:19 | PC.NURSE ---
Transfer Patient transferred to [place] [id number] via bed. Receiving nurse at bedside. No belongings with patient.
[2022-01-24] VITALS (14 sets, daily range): BP systolic 90–148; BP diastolic 31–73; PULSE 68–84; RESP 17–20; TEMP 36.4–36.7; O2SAT 86–95
[2022-01-24] MEDS: vancomycin 1,000 MG in sodium chloride 0.9% 250 ML 250 MG IV (01:03)
[2022-01-24 01:13] LABS: Basophils % 0.3 %; Eosinophils # 0.1 10^3/uL (0.0-0.8); Hematocrit 36.2 % (42.0-52.0); Hemoglobin 11.3 g/dL (11.7-16.6); Lymphocytes # 1.7 10^3/uL (0.8-4.8); Lymphocytes % 12.4 %; Mean Corpuscular HGB Conc 31.2 g/dL (30.0-36.0); Mean Corpuscular Hemoglobin 33.1 pg (28.0-34.0); Mean Corpuscular Volume 106.2 fl (80-94); Mean Platelet Volume 9.5 fL (7.4-10.4); Monocytes % 7.2 %; Neutrophils # 10.89 10^3/uL (1.8-7.7); Neutrophils % 78.3 %; Nucleated Red Blood Cells % 0 %; Platelet Count 206 10^3/cmm (130-400); Red Blood Count 3.41 10^6/uL (4.1-5.3); Red Cell Distribution Width 14.2 % (12.1-15.1); White Blood Count 13.9 10^3/uL (4.0-10.0)
[2022-01-24 01:35] LABS: Alanine Aminotransferase 50 U/L (0-41); Alkaline Phosphatase 77 IU/L (40-130); Aspartate Amino Transferase 143 U/L (0-40); Blood Urea Nitrogen 24 mg/dL (8-23); Calcium 8.6 mg/dL (8.5-10.5); Carbon Dioxide 21 mmol/L (22-29); Chloride 104 mmol/L (98-107); Globulin 3.6 g/dL (1.3-4.6); Glucose 126 mg/dL (65-115); Osmolality Calculated 288 mOsm/kg (285-295); Sodium 136 mmol/L (136-145); Total Bilirubin 0.3 mg/dL (0.15-1.2); Total Protein 5.6 g/dL (6.6-8.7)
[2022-01-24 01:37] LABS: Vancomycin Trough 12.3 ug/mL (10-15)
[2022-01-24 01:43] LABS: Anion Gap 15.1 (5-19); Potassium 4.1 mmol/L (3.5-5.1)
[2022-01-24 01:52] LABS: Creatine Phosphokinase 6208 U/L (39-308)
--- NOTE | 2022-01-24 02:15 | PC.PHAR ---
Pharmacokinetic dosing service Date: 01/24/22 Time: 214 Patient: Richard oBse Floor: 261-1 Weight: 102.058 Kilograms Vancomycin single level analysis: Current dose being given: mg Current dosing interval: hrs Current infusion time (hrs): 1 Single level Trough Data: Trough level obtained: 12.3 mcg/ml Timing of trough - # of hrs before next dose: 0.5 Hrs Desired peak: 40 mcg/ml Desired trough: 16 mcg/ml Diagnosis: Relevant medical/social history: Cultures and sensitivities: Other labs: Estimated PK Parameters: New rate constant (kate): 0.066 hr-1 Half-life: 10.50 Hours Vd from levels: 71.44 Liters (0.7 L/kg) CLvanco=?? 4.715 L/hr Estimated New Dose and Interval Recommended dose: 1848.4 mg Recommended interval: 14.9 Hrs Patient response: Patient is responding to treatment [yes/no] wbc decreasing, S/SX reduced [yes/no] Renal function is stable/unstable Recommendations: Give Vancomycin 1250 mg q 12 hrs. Infuse over 1.5 hrs Expected Cpeak: 30.5 mcg/mL Expected Ctrough: 15.3 mcg/mL AUC 0-24 /BUTCH Data: BUTCH 0.5 mcg/mL:?? AUC/BUTCH:? 1060.4 BUTCH 1.0 mcg/mL:?? AUC/BUTCH:? 530.2 Recommended labs and intervals: Measure Bun and Scr 3 times/week. Renal dosing of other antibiotics (review renal dosing of other medications and list guidelines here): Thank you for the consult, will continue to follow. Signature: Lelia Arcos [facility]
[2022-01-24] MEDS: ipratropium-albuterol 3 mL Neb INHALATION ×4 (02:21→19:40)
--- NOTE | 2022-01-24 03:16 | PC.NURSE ---
0300 US at bedside.
--- NOTE | 2022-01-24 03:16 | PC.NURSE ---
0245 Pt pulls IV out, o2 off, telemetry off. Replaced all. Pt confused as per hx.
[2022-01-24 06:34] LABS: Glucose Point of Care 131 mg/dL (70-110)
--- NOTE | 2022-01-24 08:04 | P.PN_ITS ---
Documented by User: ELVIRA Villarreal STDLIGIA 01/24/22 09:59 Subjective Subjective: Patient is lying comfortably in bed, patient is on room air this morning. He states that he is doing better. He feels that his dyspnea is improving. Patient is demented and makes statements about going to work. Patient is more responsive today that he was previously. Continues to complain of low extremity pain, yells out without touching the extremity. Medications: Reviewed: Yes Vitals/I&O/Wt Last Vital Signs Temp 97.8 F 01/24/22 04:00 Pulse 68 01/24/22 04:00 Resp 17 01/24/22 04:00 BP 112/69 01/24/22 04:00 Pulse Ox 90 01/24/22 04:00 01/23/22 01/24/22 01/24/22 22:59 06:59 14:59 Intake Total 1028.10 / 1400.515 Output Total 1000 / 1000 500 / 1500 Balance 28.10 / 400.515 -500 / -99.485 Weight last 48 hrs Weight 109.497 kg Weight 102.058 kg Weight 83.9 kg Weight 83.915 kg Physical Exam Narrative: General: Elderly male lying in bed in no apparent distress. HEENT: Normocephalic, atraumatic. Pupils equal and round. Cardiac: Regular rate and rhythm. S1 S2 present, no murmurs rubs or gallops. Peripheral pulse 2+. Respiratory: Diffuse wheezes and coarse breath signs. No rales noted. Air entry equal bilaterally. GI: Obese, soft, nontender, nondistended, normoactive bowel sounds, no organomegaly could be appreciated. Extremities: Dislocation of left 5th metatarsal at PIP joint, chronic. Lower extremity erythema is improving. Improving lower extremity edema. No cyanosis or clubbing. Neuro: No focal neurlogical deficits. Urinary Catheter Management: Lopez: Cath Placed During This Visit: yes Reason for Continuing Indwelling Catheter: Accurate Measurement of Urinary Output in Critically Ill Patients Urinary Catheter Date of Insertion: 01/22/22 Urinary Catheter Time of Insertion: 20:28 Data : 01/24/22 00:50 01/24/22 00:50 Other Labs: Neutrophils improving, down to 10.89 today from 16.38 yesterday AST 143 ALT 50 CK 6208 Total Protein 5.6 Albumin 2.0 Micro: Microbiology 01/22/22 18:15 MRSA Culture - Final Nose 01/22/22 14:02 Blood Culture - Preliminary Blood NEGATIVE TO DATE 01/22/22 14:00 Blood Culture - Preliminary Blood NEGATIVE TO DATE A&P Assessment and plan (1) Fever: Secondary to pneumonia Continue to wean oxygen as tolerated, patient is currently on room air Continue IV antibiotics consisting of vancomycin and Zosyn Covid PCR, Influenza A/B negative. MRSA PCR positive Blood cultures negative to date Continue pulmonary toilet with DuoNeb and budesonide Status: Acute (2) Sepsis: Patient has remained afebrile since admission, patients soft blood pressures have improved, no longer requiring norepinephrine. Patient has dementia, but is more alert and responsive today. Leuokocytosis still present, trending downward. Continue IV antibiotics as above, blood cultures negative to date. Status: Acute (3) Acute respiratory failure with hypoxia: Patient has been weaned off of supplemental oxygen, will continue to monitor. Rales on lung exam are improving, accessory muscle use for respiratory appears to be decreased but still present. Coarse lung sounds and diffuse wheezing still present. Status: Acute (4) Hyperkalemia: Kayexalate was initially given in emergency department, potassium this AM is 4.1 . Status: Acute (5) Rhabdomyolysis: Continues to have normal renal function, BUN 24, Cr 0.8 today. CK is trending downward, currently 6208 Continue hydration as tolerated but will continue reduced rate at 75 cc an hour secondary to concerns of fluid overload Overall patient continues slow improvement Status: Acute (6) Transaminitis: Hepatitis panel within normal limits, likely related to sepsis No specific liver issues noted on his CTA chest. Status: Acute (7) Pulmonary embolism: Seen on CTA Continue full dose Lovenox Venous doppler normal findings. Consider changing to Eliquis on discharge Status: Acute Plan Dementia. Patient's baseline is worsened and most consistent with acute metabolic encephalopathy from sepsis. This is improving today, he is more alert and conversive. History of coronary disease Hypertension, was hypotensive on admission requiring norepinephrine, this has been stopped with normal blood pressures. Will continue to hold home antihypertensive medications. Atrial fibrillation, chronically on Xarelto. Hold this since he is going on Lovenox for concern of pulmonary embolism Diabetes mellitus type 2. Continue sliding scale insulin. 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 He states that he is doing better. He feels that his dyspnea is i mproving. Patient is demented and makes statements about going to work. Patient is more responsive today that he was previously. Continues to complain of low extremity pain, yells out without touching the extremity. Agree with above, no changes needed. I interviewed the patient as well. Physical Exam Narrative: General: Elderly male lying in bed in no apparent distress. HEENT: Normocephalic, atraumatic. Pupils equal and round. Cardiac: Regular rate and rhythm. S1 S2 present, no murmurs rubs or gallops. Peripheral pulse 2+. Respiratory: Diffuse wheezes and coarse breath signs. No rales noted. Air entry equal bilaterally. GI: Obese, soft, nontender, nondistended, normoactive bowel sounds, no organomegaly could be appreciated. Extremities: Dislocation of left 5th metatarsal at PIP joint, chronic. Lower extremity erythema is improving. Improving lower extremity edema. No cyanosis or clubbing. Neuro: No focal neurlogical deficits. Agree with above, no changes needed Urinary Catheter Management: Lopez: Cath Placed During This Visit: yes Data : 01/24/22 00:50 01/24/22 00:50 A&P Assessment and plan (1) Fever: Secondary to pneumonia He is now on room air Continue IV antibiotics consisting of vancomycin and Primaxin(penicillin allergy) Covid PCR, Influenza A/B negative. Note that MRSA PCR positive Blood cultures negative to date Continue pulmonary toilet with DuoNeb and budesonide Status: Acute (2) Sepsis: Patient has remained afebrile since admission, patients soft blood pressures have improved, no longer requiring norepinephrine. Patient has dementia, but is more alert and responsive today. Leuokocytosis still present, trending downward. Continue IV antibiotics as above, blood cultures negative to date. Echocardiogram, limited views demonstrated EF likely to be within normal limits Status: Acute (3) Acute respiratory failure with hypoxia: Status: Acute (4) Hyperkalemia: Status: Acute (5) Rhabdomyolysis: Status: Acute (6) Transaminitis: Status: Acute (7) Pulmonary embolism: Status: Acute Plan Dementia. Patient's baseline is worsened and most consistent with acute metabolic encephalopathy from sepsis. This is improving today, he is more alert and conversive. History of coronary disease Hypertension, was hypotensive on admission requiring norepinephrine, this has been stopped with normal blood pressures. Will continue to hold home a ntihypertensive medications. Atrial fibrillation, chronically on Xarelto. Hold this since he is going on Lovenox for concern of pulmonary embolism Diabetes mellitus type 2. Continue sliding scale insulin. Some deep tissue injury to the lateral part of his calves as documented on history and physical. This appears stable currently but will need follow-up with nursing facility wound care on discharge. Allow natural per nursing facility records Lovenox for DVT prophylaxis Protonix for GI prophylaxis May discontinue Lopez today Possible discharge in the next 1 to 2 days. Attestations Medical Necessity Statement*: Needs continued hospitalization for IV antibiotics secondary to pneumonia. 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
[2022-01-24] MEDS: budesonide 0.5 mg/2 mL Neb INHALATION ×2 (08:22→19:40)
[2022-01-24] MEDS: sodium chloride 0.9% 1,000 ML 75 ML IV (10:07)
[2022-01-24] MEDS: pantoprazole 40 mg SDV IVP (10:07)
[2022-01-24 12:36] LABS: Glucose Point of Care 143 mg/dL (70-110)
[2022-01-24] MEDS: enoxaparin 100 mg/mL Syringe 80 MG SUBCUT (13:04)
[2022-01-24] MEDS: insulin lispro 100 unit/1 mL SUBCUT ×3 (13:04→22:31)
[2022-01-24] MEDS: vancomycin 1,250 MG/250 ML PIGGYBACK 250 MG IV (13:05)
[2022-01-24] MEDS: HYDROcodone-acetaminophen 5-325 mg Tablet 1 TAB PO ×2 (13:18→18:36)
[2022-01-24 17:25] LABS: Glucose Point of Care 189 mg/dL (70-110)
[2022-01-24] MEDS: memantine 5 mg tablet 10 MG PO (18:36)
[2022-01-24] MEDS: risperiDONE 0.25 mg Tablet 0.5 MG PO (18:37)
[2022-01-24 21:15] LABS: Glucose Point of Care 272 mg/dL (70-110)
[2022-01-25] VITALS (12 sets, daily range): BP systolic 100–113; BP diastolic 48–78; PULSE 51–101; RESP 16–18; TEMP 36.6–36.9; O2SAT 90–95
[2022-01-25] MEDS: enoxaparin 100 mg/mL Syringe 80 MG SUBCUT ×3 (00:31→23:16)
[2022-01-25] MEDS: vancomycin 1,250 MG/250 ML PIGGYBACK 250 MG IV ×2 (00:31→12:49)
--- NOTE | 2022-01-25 02:33 | PC.NURSE ---
0200 Pt not voided since straight cath at 1940. Bladder scan results of 537ml. Dr. Garcia notified. Orders indwelling cath placed. Placed per senior director of global commercial technology solutions with 14fr catheter. Immediate 550ml clear yellow urine return.
[2022-01-25] MEDS: ipratropium-albuterol 3 mL Neb INHALATION ×4 (02:39→20:45)
[2022-01-25] MEDS: sodium chloride 0.9% 1,000 ML 75 ML IV (05:12)
[2022-01-25 05:56] LABS: Basophils % 0.3 %; Eosinophils # 0.3 10^3/uL (0.0-0.8); Eosinophils % 2.7 %; Hematocrit 34.8 % (42.0-52.0); Hemoglobin 10.9 g/dL (11.7-16.6); Lymphocytes # 1.5 10^3/uL (0.8-4.8); Lymphocytes % 13.3 %; Mean Corpuscular HGB Conc 31.3 g/dL (30.0-36.0); Mean Corpuscular Hemoglobin 32.9 pg (28.0-34.0); Mean Corpuscular Volume 105.1 fl (80-94); Mean Platelet Volume 9.4 fL (7.4-10.4); Monocytes # 0.7 10^3/uL (0.2-0.9); Monocytes % 6.5 %; Neutrophils # 8.64 10^3/uL (1.8-7.7); Neutrophils % 76.6 %; Nucleated Red Blood Cells % 0 %; Platelet Count 207 10^3/cmm (130-400); Red Blood Count 3.31 10^6/uL (4.1-5.3); Red Cell Distribution Width 14.3 % (12.1-15.1); White Blood Count 11.3 10^3/uL (4.0-10.0)
[2022-01-25] MEDS: risperiDONE 0.25 mg Tablet 0.5 MG PO ×2 (06:19→19:15)
[2022-01-25 06:20] LABS: Glucose Point of Care 115 mg/dL (70-110)
[2022-01-25] MEDS: memantine 5 mg tablet 10 MG PO ×2 (06:20→19:15)
[2022-01-25 06:35] LABS: Alanine Aminotransferase 48 U/L (0-41); Alkaline Phosphatase 82 IU/L (40-130); Aspartate Amino Transferase 94 U/L (0-40); Blood Urea Nitrogen 24 mg/dL (8-23); Calcium 8.8 mg/dL (8.5-10.5); Carbon Dioxide 20 mmol/L (22-29); Chloride 106 mmol/L (98-107); Globulin 3.6 g/dL (1.3-4.6); Glucose 116 mg/dL (65-115); Osmolality Calculated 287 mOsm/kg (285-295); Sodium 136 mmol/L (136-145); Total Bilirubin 0.3 mg/dL (0.15-1.2); Total Protein 5.6 g/dL (6.6-8.7)
[2022-01-25 07:09] LABS: Creatine Phosphokinase 3276 U/L (39-308)
[2022-01-25] MEDS: pantoprazole 40 mg SDV IVP (08:00)
[2022-01-25] MEDS: budesonide 0.5 mg/2 mL Neb INHALATION ×2 (08:52→20:45)
--- NOTE | 2022-01-25 09:16 | PM.PN ---
Documented by User: ELVIRA Villarreal STDLIGIA 01/25/22 09:30 Subjective Subjective: Patient is lying in bed comfortably, very alert and conversive. Denies any dyspnea or chest pain. Continues to endorse bilateral lower extremity pain, arm pain, and back pain. Denies any fevers or chills, nausea or vomitting. Medications: Reviewed: Yes Vitals/I&O/Wt Last Vital Signs Temp 98.2 F 01/25/22 07:41 Pulse 88 01/25/22 08:55 Resp 18 01/25/22 08:55 BP 113/70 01/25/22 07:41 Pulse Ox 94 01/25/22 08:55 01/24/22 01/25/22 01/25/22 22:59 06:59 14:59 Intake Total 1060 / 1900 1100 / 3000 350 / 350 Output Total 525 / 975 720 / 1695 Balance 535 / 925 380 / 1305 350 / 350 Weight last 48 hrs Weight 108.862 kg Weight 109.497 kg Physical Exam Narrative: General: Obese, male lying in bed comfortably, conversive, alert. HEENT: Normocephalic, atraumatic. Pupils equal and round. Cardiac: Regular rate and rhythm. S1 S2 present, no murmurs rubs or gallops. Peripheral pulse 2+. Respiratory: Diffuse wheezes still present, rhonchi improving, no rales noted. Air entry equal bilaterally. GI: Obese, soft, nontender, nondistended, normoactive, no organomegaly. Extremities: Low extremity erythema still present. 2+ pitting edema now present. No cyanosis or clubbing. Neuro: No focal neurological deficits. Urinary Catheter Management: Lopez: Cath Placed During This Visit: yes, but has since been removed by the nurse Reason for Continuing Indwelling Catheter: Acute Urinary Retention or Obstruction Urinary Catheter Date of Insertion: 01/22/22 Urinary Catheter Time of Insertion: 20:28 Date Urinary Catheter Removed: 01/24/22 Time Urinary Catheter Discontinued: 11:02 Data : 01/25/22 05:35 01/25/22 05:35 Other Labs: AST 94 ALT 48 CK 3276 A&P Assessment and plan (1) Fever: Secondary to pneumonia, patient continues to remain afebrile He is now on room air Continue IV antibiotics consisting of vancomycin and Primaxin (secondary to penicillin allergy) Covid PCR, Influenza A/B negative. Note that MRSA PCR positive Blood cultures negative to date Continue pulmonary toilet with DuoNeb and budesonide Status: Acute (2) Sepsis: Patient has remained afebrile since admission, patients soft blood pressures have improved, no longer requiring norepinephrine. Patient has dementia, but is more alert and responsive today. Leuokocytosis still present, continues to trend downward. Continue IV antibiotics as above, blood cultures negative to date. Echocardiogram, limited views demonstrated EF likely to be within normal limits Status: Acute (3) Acute respiratory failure with hypoxia: Patient has been weaned off of supplemental oxygen, will continue to monitor. Rales on lung exam are improving, accessory muscle use for respiratory appears to be decreased but still present. Coarse lung sounds also improving, diffuse wheezing still present. Status: Acute (4) Hyperkalemia: Kayexalate was initially given in emergency department, potassium this AM is 4. Status: Acute (5) Rhabdomyolysis: Continues to have normal renal function, BUN 24, Cr 0.8 today. CK is trending downward, currently 3276 Continue hydration as tolerated, will reduce rate on infusion of IV fluids to 50 cc per hour as patient has developed lower extremity edema. Overall patient continues slow improvement Status: Acute (6) Transaminitis: Hepatitis panel within normal limits, likely related to sepsis No specific liver issues noted on his CTA chest. Status: Acute (7) Pulmonary embolism: Seen on CTA Continue full dose Lovenox Venous doppler normal findings. Consider changing to Eliquis on discharge Status: Acute Plan Dementia. Patient's baseline is worsened and most consistent with acute metabolic encephalopathy from sepsis. This is continues to improve, he is alert and conversive. History of coronary disease Hypertension, was hypotensive on admission requiring norepinephrine, this has been stopped with normal blood pressures. Will continue to hold home antihypertensive medications. Atrial fibrillation, chronically on Xarelto. Hold this since he is going on Lovenox for concern of pulmonary embolism Diabetes mellitus type 2. Continue sliding scale insulin. Some deep tissue injury to the lateral part of his calves as documented on history and physical. This appears stable currently but will need follow-up with nursing facility wound care on discharge. Allow natural per nursing facility records Lovenox for DVT prophylaxis Protonix for GI prophylaxis May discontinue Lopez today Possible discharge in the next 1 to 2 days. Coding Level of Care Code Acute Criminal Court Judge for Chg Fwd Diagnoses Fever R50.9 Sepsis A41.9 Acute respiratory failure with hypoxia J96.01 Hyperkalemia E87.5 Rhabdomyolysis M62.82 Transaminitis R74.01 Pulmonary embolism I26.99 Documented by User: Danilo Love MD 01/25/22 11:56 Subjective Subjective: Patient is lying in bed comfortably, very alert and conversive. Denies any dyspnea or chest pain. Continues to endorse bilateral lower extremity pain, arm pain, and back pain. Denies any fevers or chills, nausea or vomitting. Agree with above. No changes needed. Physical Exam Narrative: General: Obese, male lying in bed comfortably, conversive, alert. HEENT: Normocephalic, atraumatic. Pupils equal and round. Cardiac: Regular rate and rhythm. S1 S2 present, no murmurs rubs or gallops. Peripheral pulse 2+. Respiratory: Diffuse wheezes still present, rhonchi improving, no rales noted. Air entry equal bilaterally. GI: Obese, soft, nontender, nondistended, normoactive, no organomegaly. Extremities: Low extremity erythema still present. 2+ pitting edema now present. No cyanosis or clubbing. Neuro: No focal neurological deficits. I examined the patient as well. Overall he appears improved, and certainly more alert. Urinary Catheter Management: Lopez: Cath Placed During This Visit: yes, but has since been removed by the nurse Data : 01/25/22 05:35 01/25/22 05:35 A&P Assessment and plan (1) Fever: Secondary to pneumonia, patient continues to remain afebrile He is now on room air Continue IV antibiotics consisting of vancomycin and Primaxin (secondary to penicillin allergy) Covid PCR, Influenza A/B negative. Note that MRSA PCR positive Blood cultures negative to date Continue pulmonary toilet with DuoNeb and budesonide Hopefully he will be able to be discharged tomorrow. Status: Acute (2) Sepsis: Status: Acute (3) Acute respiratory failure with hypoxia: Status: Acute (4) Hyperkalemia: Status: Acute (5) Rhabdomyolysis: Continues to have normal renal function, BUN 24, Cr 0.8 today. CK is trending downward, currently 3276 Continue hydration as tolerated, will reduce rate on infusion of IV fluids to 50 cc per hour as patient has developed lower extremity edema. Overall patient continues slow improvement If CK continues to improve, discharge tomorrow Status: Acute (6) Transaminitis: Status: Acute (7) Pulmonary embolism: Status: Acute Plan Dementia. Patient's baseline is worsened and most consistent with acute metabolic encephalopathy from sepsis. This is continues to improve, he is alert and conversive. History of coronary disease Hypertension, was hypotensive on admission requiring norepinephrine, this has been stopped with normal blood pressures. Will continue to hold home antihypertensive medications. Atrial fibrillation, chronically on Xarelto. Hold this since he is going on Lovenox for concern of pulmonary embolism. Plan ultimately to discharge on Eliquis. Diabetes mellitus type 2. Continue sliding scale insulin. Some deep tissue injury to the lateral part of his calves as documented on history and physical. This appears stable currently but will need follow-up with nursing facility wound care on discharge. BPH. Lopez had to be replaced last night. We will add Flomax. Will likely discharge with Lopez in place, and have follow-up with urology as an outpatient. Allow natural per nursing facility records Lovenox for DVT prophylaxis Protonix for GI prophylaxis May discontinue Lopez today Likely discharge tomorrow Attestations Medical Necessity Statement*: Needs continued hospital stay for IV antibiotics related to pneumonia as well as close follow-up of rhabdomyolysis. Coding Level of Care Code Acute Criminal Court Judge for g Fwd Diagnoses Fever R50.9 Sepsis A41.9 Acute respiratory failure with hypoxia J96.01 Hyperkalemia E87.5 Rhabdomyolysis M62.82 Transaminitis R74.01 Pulmonary embolism I26.99
[2022-01-25] MEDS: tamsulosin 0.4 mg Capsule PO (10:39)
--- NOTE | 2022-01-25 11:42 | PC.NURSE ---
patient is pulling on his banuelos.
[2022-01-25 12:15] LABS: Glucose Point of Care 169 mg/dL (70-110)
[2022-01-25] MEDS: insulin lispro 100 unit/1 mL SUBCUT ×2 (12:48→19:15)
[2022-01-25] MEDS: HYDROcodone-acetaminophen 5-325 mg Tablet 1 TAB PO (13:52)
--- NOTE | 2022-01-25 14:29 | PC.SOCIAL ---
Pg 2 IMM Explained to pt & daughter, Pg 2 IMM. No questions voiced. Provided pt a copy. Initialed, dated, & timed a copy & placed in chart.
[2022-01-25 17:55] LABS: Glucose Point of Care 188 mg/dL (70-110)
[2022-01-25 21:15] LABS: Glucose Point of Care 142 mg/dL (70-110)
[2022-01-26] VITALS (7 sets, daily range): BP systolic 81–98; BP diastolic 55–63; PULSE 69–115; RESP 16–20; TEMP 36.6–36.7; O2SAT 90–92
[2022-01-26] MEDS: vancomycin 1,250 MG/250 ML PIGGYBACK 250 MG IV (01:25)
[2022-01-26] MEDS: ipratropium-albuterol 3 mL Neb INHALATION ×2 (02:42→08:10)
[2022-01-26] MEDS: sodium chloride 0.9% 1,000 ML 75 ML IV (03:07)
[2022-01-26 05:58] LABS: Blood Urea Nitrogen 19 mg/dL (8-23); Calcium 8.9 mg/dL (8.5-10.5); Carbon Dioxide 20 mmol/L (22-29); Chloride 102 mmol/L (98-107); Glucose 142 mg/dL (65-115); Osmolality Calculated 281 mOsm/kg (285-295); Sodium 133 mmol/L (136-145)
[2022-01-26] MEDS: risperiDONE 0.25 mg Tablet 0.5 MG PO (06:14)
[2022-01-26] MEDS: memantine 5 mg tablet 10 MG PO (06:14)
[2022-01-26 06:24] LABS: Creatine Phosphokinase 1761 U/L (39-308)
[2022-01-26 08:02] LABS: Glucose Point of Care 138 mg/dL (70-110)
[2022-01-26] MEDS: budesonide 0.5 mg/2 mL Neb INHALATION (08:10)
--- NOTE | 2022-01-26 08:41 | PM.DCS ---
Discharge Providers Date of Admission: 01/22/22 11:38 Date of Discharge: January 26, 2022 Attending Provider at Admission: Danilo Love MD Attending Provider at Discharge: Danilo Love MD Primary Care Provider: Gabriel Avery MD Diagnoses at Discharge Discharge Diagnosis (1) Fever: Status: Acute (2) Sepsis: Status: Acute (3) Acute respiratory failure with hypoxia: Status: Acute (4) Hyperkalemia: Status: Acute (5) Rhabdomyolysis: Status: Acute (6) Transaminitis: Status: Acute (7) Pulmonary embolism: Status: Acute Reason for Visit Reason for Visit: SHORTNESS OFBREATH/ AMS Hospital Course Hospital Course Richard is a 76-year-old white male who presented to the hospital with fever and hypotension consistent with sepsis. Imaging test, CTA, demonstrated a pneumonia. There was also question of pulmonary embolism. Hyperkalemia was noted as well as rhabdomyolysis. He was placed in the hospital and hydrated. Broad-spectrum antibiotics were initiated consisting of vancomycin and Zosyn. Hepatitis panel was done and negative secondary to elevated LFTs. These were most likely elevated secondary to sepsis. Venous duplex was checked on lower extremities which was negative. His Xarelto was changed to Lovenox while in the hospital. Family confirmed that he was allow natural . During his hospital course he had significant gradual improvement. By time of discharge she had been afebrile for over 48 hours. Blood cultures were negative. CK had diminished significantly and he was taking p.o. He had weaned down to room air oxygen. It was thought at that time he could discharge back to [facility] facility to complete his course of antibiotics which will consist of doxycycline and Levaquin. MRSA PCR was positive in the hospital. On discharge he will change to Eliquis from Xarelto. He will also need to see his primary care provider at the [facility] facility in 3 to 5 days. He will also need wound care secondary to some deep tissue injury back of both calves, which was present on admission. Physical Exam Narrative: General exam no distress, conversant but confused Neck is supple Cardiovascular regular rate and rhythm without murmur. Note that atrial flutter is noted on his EKG. Echocardiogram was also done demonstrating preserved EF Lungs clear Abdomen is soft, positive bowel sounds Extremities trace bilateral edema. Bruising/deep tissue injury noted back of both calves. Urinary Catheter Management: Lopez: Cath Placed During This Visit: yes, but has since been removed by the nurse Reason for Continuing Indwelling Catheter: Acute Urinary Retention or Obstruction Urinary Catheter Date of Insertion: 01/22/22 Urinary Catheter Time of Insertion: 20:28 Date Urinary Catheter Removed: 01/24/22 Time Urinary Catheter Discontinued: 11:02 Discharge Data Studies Completed and Pending Completed Studies During Hospitalization Category Date Time Status CT angio chest PE protcl 44480 Stat Cat Scan 01/22/22 10:17 Completed XR chest 1V portable [id number] Stat Exams 01/22/22 08:18 Completed CV echo limited [id number] Routine Ultrasound 01/23/22 07:06 [place] [id number] Routine Ultrasound 01/22/22 12:40 Completed Pending at discharge Category Date Time Status Blood Culture Stat Lab 01/22/22 14:02 Results Sputum Culture and Gram Stain Routine Lab 01/22/22 12:42 Uncollected Vancomycin Trough Timed Lab 01/26/22 11:30 Ordered Radiology Impressions Chest X-Ray 01/22/22 08:18 IMPRESSION: 1. It is difficult to exclude free air under the right hemidiaphragm. Recommend PA and lateral chest radiographs to better characterize. 2. Pleural calcification at the right base likely reflects prior asbestos exposure. 3. Probable subsegmental atelectasis at the lung bases. 4. Pleural thickening or pleural fluid on the left. ADDENDUM: 01/22/22 0854 Findings discussed with PANCHITO JANG at 01/22/2022 8:52 AM LEARNING DISABLED TEACHER. Chest CTA 01/22/22 10:17 IMPRESSION: 1. Motion artifact compromises assessment for pulmonary embolus. There is a probable small pulmonary embolus in the left upper lobe. There is suggestion of right heart strain. 2. 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 There is no gross evidence of rupture. 3. Consolidation in the right lower lobe that may reflect atelectasis or pneumonia. 4. Irregular pulmonary nodules at the right base measuring up to 6.8 mm. As per Fleischner Society 2017 guidelines for follow-up and management of pulmonary nodules: For patients at low risk (minimal or absent history of smoking and of other known risk factors), recommend CT at 3-6 months, then consider CT at 18-24 months. For patient at high risk (history of smoking or of other known risk factors), recommend CT at 3-6 months, then CT at 18-24 months. 5. Coronary artery disease. ADDENDUM: 01/22/[address] Bustamante at 01/22/2022 11:50 AM LEARNING DISABLED TEACHER. Laboratory Results WBC 11.3 10^3/uL (4.0-10.0) H 01/25/22 05:35 RBC 3.31 10^6/uL (4.1-5.3) L 01/25/22 05:35 Hgb 10.9 g/dL (11.7-16.6) L 01/25/22 05:35 Hct 34.8 % (42.0-52.0) L 01/25/22 05:35 MCV 105.1 fl (80-94) H 01/25/22 05:35 MCH 32.9 pg (28.0-34.0) 01/25/22 05:35 MCHC 31.3 g/dL (30.0-36.0) 01/25/22 05:35 RDW 14.3 % (12.1-15.1) 01/25/22 05:35 Plt Count 207 10^3/cmm (130-400) 01/25/22 05:35 MPV 9.4 fL (7.4-10.4) 01/25/22 05:35 Neut % (Auto) 76.6 % 01/25/22 05:35 Lymph % (Auto) 13.3 % 01/25/22 05:35 [place] % (Auto) 6.5 % 01/25/22 05:35 Eos % (Auto) 2.7 % 01/25/22 05:35 Baso % (Auto) 0.3 % 01/25/22 05:35 Neut # (Auto) 8.64 10^3/uL (1.8-7.7) H 01/25/22 05:35 Lymph # (Auto) 1.5 10^3/uL (0.8-4.8) 01/25/22 05:35 [place] # (Auto) 0.7 10^3/uL (0.2-0.9) 01/25/22 05:35 Eos # (Auto) 0.3 10^3/uL (0.0-0.8) 01/25/22 05:35 Baso # (Auto) 0.0 10^3/uL (0.0-0.1) 01/25/22 05:35 Nucleated RBC % (auto) 0 % 01/25/22 05:35 Nucleated RBCs # 0.0 /100WBC 01/25/22 05:35 Specimen Type Arterial 01/22/22 17:52 Sample Site Radial, right 01/22/22 17:52 ABG pH 7.42 (7.35-7.45) 01/22/22 17:52 ABG pCO2 32.2 mmHg (35-45) L 01/22/22 17:52 ABG pO2 69.9 mmHg (80.0-100.0) L 01/22/22 17:52 ABG HCO3 20.7 mmol/L (22-26) L 01/22/22 17:52 ABG O2 Saturation 94.3 01/22/22 17:52 ABG Base Excess -3.0 mmol/L (-2.0-2.0) L 01/22/22 17:52 Anibal Test Pos 01/22/22 17:52 A-a O2 Gradient 15.5 mmHg (5-10) H 01/22/22 17:52 Hematocrit 39.0 % (42-52) L 01/22/22 17:52 Hgb O2 Saturation 92.5 % (95-100) L 01/22/22 17:52 Carboxyhemoglobin 1.3 %THgb (0.4-20.1) 01/22/22 17:52 Methemoglobin 0.6 % (0.4-1.5) 01/22/22 17:52 Total Hemoglobin 12.7 g/dL (14-18) L 01/22/22 17:52 Sodium 135.0 mmol/L (131-143) 01/22/22 17:52 Potassium 4.3 mmol/L (3.5-5.0) 01/22/22 17:52 Glucose 270.0 mg/dL (70-115) H 01/22/22 17:52 Ionized Calcium 1.2 mmol/L (1.1-1.4) 01/22/22 17:52 O2 Delivery Device Nc 01/22/22 17:52 O2 Liters/Min 3.0 % 01/22/22 17:52 FiO2 32.0 % 01/22/22 17:52 Radial Saw Operator ID Gd 01/22/22 17:52 Sodium 133 mmol/L (136-145) L 01/26/22 05:12 Potassium 4.0 mmol/L (3.5-5.1) 01/26/22 05:12 Chloride 102 mmol/L (98-107) 01/26/22 05:12 Carbon Dioxide 20 mmol/L (22-29) L 01/26/22 05:12 Anion Gap 15.0 (5-19) 01/26/22 05:12 BUN 19 mg/dL (8-23) 01/26/22 05:12 Creatinine 0.6 mg/dL (0.7-1.2) L 01/26/22 05:12 GFR Calculation Not Reportable 01/26/22 05:12 Glucose 142 mg/dL (65-115) H 01/26/22 05:12 POC Glucose 138 mg/dL (70-110) H 01/26/22 07:43 Calculated Osmolality 281 mOsm/kg (285-295) L 01/26/22 05:12 Lactic Acid 1.5 mmol/L (0.5-2.2) 01/22/22 09:45 Calcium 8.9 mg/dL (8.5-10.5) 01/26/22 05:12 Magnesium 2.7 mg/dL (1.7-2.3) H 01/23/22 04:44 Total Bilirubin 0.3 mg/dL (0.15-1.2) 01/25/22 05:35 AST 94 U/L (0-40) H 01/25/22 05:35 ALT 48 U/L (0-41) H 01/25/22 05:35 Alkaline Phosphatase 82 IU/L (40-130) 01/25/22 05:35 Creatine Kinase 1761 U/L (39-308) H* 01/26/22 05:12 Troponin T Baseline 69 ng/L (0-15) H 01/22/22 08:05 Troponin T 120 Minute 75.44 ng/L (0-15) H 01/22/22 10:11 Delta Troponin T 6.44 ABS# (0-10) 01/22/22 10:11 Troponin T Hi Sens 6Hr 75.51 ng/L (0-15) H 01/22/22 14:00 Troponin T Hi Sens 6Hr Delta 6.51 ng/L (0-12) 01/22/22 14:00 NT-Pro-B Natriuret Pep 2311 pg/mL (0-125) H 01/22/22 08:05 Total Protein 5.6 g/dL (6.6-8.7) L 01/25/22 05:35 Albumin 2.0 g/dL (3.5-5.2) L 01/25/22 05:35 Globulin 3.6 g/dL (1.3-4.6) 01/25/22 05:35 Urine Color Yellow (Yellow) 01/22/22 09:05 Urine Appearance Clear (CLEAR) 01/22/22 09:05 Urine pH 5 (5-7) 01/22/22 09:05 Ur Specific [place] 1.020 (1.005-1.030) 01/22/22 09:05 Urine Protein Neg (Negative) 01/22/22 09:05 Urine Glucose (UA) 2+ (Normal) H 01/22/22 09:05 Urine Ketones Negative (Negative) 01/22/22 09:05 Urine Blood 3+ (Negative) H 01/22/22 09:05 Urine Nitrate Negative (Negative) 01/22/22 09:05 Urine Bilirubin Neg (Negative) 01/22/22 09:05 Urine Urobilinogen Norm mg/dL (Negative) 01/22/22 09:05 Ur Leukocyte Esterase Negative (Negative) 01/22/22 09:05 Urine RBC Rare /hpf (0-2) 01/22/22 09:05 Urine WBC 0-4 /hpf (0-5) H 01/22/22 09:05 Ur Squamous Epith Cells 5-10 /hpf (0-5) H 01/22/22 09:05 Amorphous Sediment Not Reportable 01/22/22 09:05 Urine Bacteria 1+ /hpf (NONE) H 01/22/22 09:05 Urine Mucus Trace /hpf 01/22/22 09:05 Vancomycin Trough 12.3 ug/mL (10-15) 01/24/22 00:50 Coronavirus 229E (PCR) Not detected (NOT DETECT) 01/22/22 18:15 Hepatitis A IgM Ab Non-reactive (Nonreactive) 01/22/22 08:05 Hep Bs Antigen Non-reactive (Nonreactive) 01/22/22 08:05 Hep B Core IgM Ab Non-reactive (Nonreactive) 01/22/22 08:05 Hepatitis C Antibody Non-reactive (Nonreactive) 01/22/22 08:05 SARS-CoV-2 (PCR) Not detected (NOT DETECT) 01/22/22 18:15 Vitals Last Vital Signs Temp 98.1 F 01/26/22 07:42 Pulse 115 H 01/26/22 07:42 Resp 20 H 01/26/22 07:42 BP 97/63 01/26/22 07:42 Pulse Ox 90 01/26/22 07:42 Discharge Plan Discharge Patient Disposition: Xfer SNF Condition: Stable Prescriptions: New tamsulosin 0.4 mg Capsule 0.4 mg PO DAILY Qty: 30 0RF levofloxacin 750 mg tablet 750 mg PO DAILY 5 Days Qty: 5 0RF doxycycline monohydrate 100 mg capsule 100 mg PO BID Qty: 10 0RF Eliquis 5 mg tablet 5 mg PO BID Qty: 60 0RF Continued cilostazol 100 mg tablet 100 mg PO BID@ 0RF allopurinol 300 mg tablet 300 mg PO DAILY@07 0RF nitroglycerin [Nitrostat] 0.4 mg tablet, sublingual 0.4 mg SUBLINGUAL Q5M PRN (Reason: Chest Pain) 0RF acetaminophen 325 mg capsule 650 mg PO Q6H PRN (Reason: Pain) 0RF (DME) pen needle, diabetic [Easy Comfort Pen [place]] 31 gauge x 5/16 needle See Rx Instructions .ROUTE .MEDSUPPLY Qty: 100 3RF Rx Instructions: As directed once daily memantine [Namenda] 10 mg tablet 10 mg PO BID@, 0RF albuterol sulfate 2.5 mg /3 mL (0.083 %) Solution For Nebulization 2.5 mg inhalation Q8H PRN (Reason: Shortness Of Breath) 0RF lorazepam 0.5 mg Tablet 0.5 mg PO BID PRN (Reason: Anxiety) 0RF magnesium hydroxide [Milk of Magnesia] 400 mg/5 mL Suspension 5 ml PO DAILY PRN (Reason: Constipation) 0RF bisacodyl 10 mg Suppository 10 mg ME DAILY PRN (Reason: Constipation) 0RF risperidone [Risperdal] 0.5 mg Tablet 0.5 mg PO BID@ 0RF folic acid 400 mcg tablet 400 mcg PO DAILY@ 0RF Changed insulin glargine 100 unit/mL Solution 10 unit SUBCUT BEDTIME@ Qty: 0 0RF Discontinued lisinopril 10 mg tablet 10 mg PO DAILY@07 0RF Hold Instructions: Resume on 01/25/22. Rx Instructions: on hold from 01/18/22 to 01/25/22 Victoza 3-Zain 0.6 mg/0.1 mL (18 mg/3 mL) pen injector 1.8 mg SUBCUT DAILY@ 0RF Xarelto 15 mg tablet 15 mg PO DAILY@19 0RF Rx Instructions: must administer with evening meal loperamide 2 mg Tablet See Rx Instructions .ROUTE .COMPLEX 0RF Rx Instructions: 1 cap po every 30 mins prn for diarrhea give one cap after each loose stool to max of 5 caps per day loperamide 2 mg Tablet See Rx Instructions .ROUTE .COMPLEX 0RF Rx Instructions: 2 capsules po every 24 hours prn for diarrhea give 2 caps after first loose stool then go to step 2 metoprolol succinate 25 mg tablet extended release 24 hr 25 mg PO DAILY@07 0RF Hold Instructions: Resume on 01/25/22. Rx Instructions: on hold from 01/18/22 to 01/25/22 rosuvastatin 20 mg tablet 20 mg PO BEDTIME@ 0RF potassium chloride 10 mEq capsule, extended release 10 meq PO EVERY OTHER DAY Qty: 0 0RF Lasix 40 mg tablet 20 mg PO Q48H 0RF Discharge Orders: Discharge Order (Routine); Ordered 01/26/22 Ordered By: Danilo Love Referrals: [facility] [Outside] Richard Cerrato MD [Physician] - 1 week (Urinary retention, Lopez left in at discharge) Gabriel Avery MD [Primary Care Provider] - 4-7 days Discharge Diet: Diabetic Activity Restrictions/Additional Instructions: Leave Lopez in at discharge Follow-up with urology in 1 to 2 weeks Check blood sugar twice daily and as needed, morning and night Oxygen 2 L per nasal cannula as needed sat less than 90% Referral for wound care at nursing facility, lower leg deep tissue injury present on admission here at the hospital. Discharge Attestations Time Spent in Discharge Care*: greater than 30 min Quality Metrics Clinical Quality Measures [ Venous Thromboembolism { Contraindication to Overlap Therapy: Overlap treatment not indicated; VTE Discharge Education: Education about anticoagulant therapy/Care Notes given; Deep Vein Thrombosis/Pulmonary Embolism Present on Admission: Yes; Contraindication to Pharm VTE Prophylaxis: None; Pharmacological prophylaxis given;}] Coding Level of Care Code Acute Chg FW [place] note Diagnoses Fever R50.9 Sepsis A41.9 Acute respiratory failure with hypoxia J96.01 Hyperkalemia E87.5 Rhabdomyolysis M62.82 Transaminitis R74.01 Pulmonary embolism I26.99
[2022-01-26] MEDS: HYDROcodone-acetaminophen 5-325 mg Tablet 1 TAB PO (10:53)
[2022-01-26] MEDS: pantoprazole 40 mg SDV IVP (10:53)
[2022-01-26] MEDS: tamsulosin 0.4 mg Capsule PO (10:53)
[2022-01-26 13:13] LABS: Glucose Point of Care 238 mg/dL (70-110)
== END 2022-01-26 12:11 | disposition skilled nursing facility (03) | DRG 871 ==
LOC: ER 09:57 → ICU 11:25 → MEDSURG 01-23 23:04
PROVIDERS: Admitting Provider Internal Medicine; Emergency Provider Family Medicine; PCP Family Medicine; Visit Provider Internal Medicine
DX: A41.9 Sepsis, unspecified organism (principal); J18.9 Pneumonia, unspecified organism; J96.01 Acute respiratory failure with hypoxia; I26.99 Other pulmonary embolism without acute cor pulmonale; G93.41 Metabolic encephalopathy; F10.27 Alcohol dependence with alcohol-induced persisting dementia; M62.82 Rhabdomyolysis; I48.20 Chronic atrial fibrillation, unspecified; I95.9 Hypotension, unspecified; I25.10 Atherosclerotic heart disease of native coronary artery without angina pectoris; M1A.9XX0 Chronic gout, unspecified, without tophus (tophi); I12.9 Hypertensive chronic kidney disease with stage 1 through stage 4 chronic kidney disease, or unspecified chronic kidney disease; E11.22 Type 2 diabetes mellitus with diabetic chronic kidney disease; N18.9 Chronic kidney disease, unspecified; E11.51 Type 2 diabetes mellitus with diabetic peripheral angiopathy without gangrene; F10.21 Alcohol dependence, in remission; I25.2 Old myocardial infarction; E78.5 Hyperlipidemia, unspecified; E87.5 Hyperkalemia; Z66 Do not resuscitate; Z79.4 Long term (current) use of insulin; L89.322 Pressure ulcer of left buttock, stage 2; L89.316 Pressure-induced deep tissue damage of right buttock; B95.62 Methicillin resistant Staphylococcus aureus infection as the cause of diseases classified elsewhere
CPT/HCPCS: 36415; 36416; 36600; 51702; 51798; 71045; 71275; 80048; 80051; 80053; 80074; 80202; 81001; 82330; 82550; 82805; 82962; 83605; 83735; 83880; 84484; 85025; 87040; 87635; 87641; 92523; 92610; 93005; 93308; 93970; 94640; 96360; 96361; 96372; 97161; 97530; 99285; C9113; J0743; J1650; J1815; J2270; J3370; J7030; J7040; J7050; J7626; Q9967